=== PATIENT | male | born 1955 | race Native Hawaiian/Other Pacific Islander ===

== ENCOUNTER 2022-02-03 20:24 | Emergency (ER) | payer OTHER, MEDICAID, SELFPAY ==
[2022-02-03] VITALS (9 sets, daily range): BP systolic 176–198; BP diastolic 89–98; PULSE 75–78; RESP 16–22; TEMP 36.9; O2SAT 100
--- NOTE | 2022-02-03 21:07 | DI.RAD.S_ITS ---
PROCEDURE: XR CHEST 1V INDICATIONS: weakness TECHNIQUE: One view of the chest was acquired. COMPARISON: None. FINDINGS: Surgical changes and devices: Right IJ dialysis catheter in place. Lungs and pleura: Low lung volumes. Mildly thick interstitial markings and hazy alveolar opacities in the bilateral infrahilar regions. Possible trace bilateral effusions. No pneumothorax. Mediastinum: Mild cardiomegaly, partially obscured by low lung volumes. Normal aortic contour. No significant central venous congestion. Bones and chest wall: No suspicious bony lesions. Overlying soft tissues appear unremarkable. IMPRESSION: 1. Interstitial thickening and minor infrahilar alveolar opacities, most likely due to volume overload or CHF. 2. Mild cardiomegaly, likely accentuated by low lung volumes. 3. Possible trace bilateral effusions. Dictated by: Martha Valera M.D. on 02/03/2022 at 22:36 Approved by: Martha Valera M.D. on 02/03/2022 at 22:37
--- NOTE | 2022-02-03 21:17 | ED_ITS ---
HPI - Weakness General Chief complaint: Weakness Stated complaint: not feeling comfortable, on dialysis Time Seen by Provider: 02/03/22 21:07 Source: patient Mode of arrival: Wheelchair History of Present Illness HPI Narrative: Patient is a 66-year-old male with history is of hypertension, diabetes on hemodialysis, hospitalization September through December in [place] with multiple issues including bacteremia, MSSA, hyponatremia, anemia presenting today with ongoing weakness. His family moved him here after he was released is so they could help. He went to dialysis today but he has been feeling weak since yesterday. He no fevers or chills he seems to have pain all over no specific complaints. Family has noted significant decline. No real focal deficits. There is a language barrier daughter is at bedside and is the primary history rate. Related Data Allergies Allergy/AdvReac Type Severity Reaction Status Date / Time No Known Drug Allergies Allergy Verified 02/03/22 20:41 Review of Systems Review of Systems ROS Unobtainable: All systems reviewed & are unremarkable except as noted in HPI and below Patient History Social History Smoking Status: Never smoker Smoking Status: Never smoker Substance Use Type: does not use Exam Initial Vital Signs Initial Vital Signs: Vital Signs Temperature 98.4 F 02/03/22 20:37 Pulse Rate 78 02/03/22 20:37 Respiratory Rate 20 02/03/22 20:37 Blood Pressure 185/91 H 02/03/22 20:37 Pulse Oximetry 100 02/03/22 20:37 GENERAL: Alert week 66-year-old male appears older than stated age in no acute distress. HEENT: Head atraumatic,EOMI, pupils reactive, face symmetric, moist mucous membranes CARDIOVASCULAR: Regular rate and rhythm without murmurs, rubs or gallops. RESPIRATORY: Breath sounds equal bilaterally, no wheezes rales or rhonchi. ABDOMEN: Soft, nontender. Normoactive bowel sounds all 4 quadrants. No guarding or rebound. EXTREMITIES: Normal range of motion, no clubbing or edema. Neurovascularly intact NEUROLOGICAL: Alert and oriented diffusely weak in all extremities unable to mov e right leg which is baseline according to family. He has some tremors noted well SKIN: Warm, dry, no laceration, no petechiae, no rashes or lesions. Course Orders Ordered: ED Orders 02/03/22 21:07 XR chest 1V Stat EKG-12 Lead Stat 02/03/22 21:35 Complete Blood Count AUTO DIFF Stat Comprehensive Metabolic Panel Stat Lactate (Lactic Acid) Stat Lipase Stat Procalcitonin Stat Troponin & CK Cardiac Panel Stat 02/03/22 21:53 Blood Culture Stat 02/03/22 23:59 Trop I [Troponin I] Stat Discontinued Medications POTASSIUM CHLORIDE IN WATER (Potassium Cl 10 Meq/100 Ml Rosemary) 10 meq in 100 mls @ 100 mls/hr IV Q1H TAMARA Stop: 02/04/22 02:29 Last Infusion: 02/04/22 03:07 Dose: 0 mls/hr Documented by: Admin: 02/04/22 02:05 Dose: 100 mls/hr Documented by: Infusion: 02/04/22 01:58 Dose: 100 mls/hr Documented by: Admin: 02/04/22 00:58 Dose: 100 mls/hr Documented by: Infusion: 02/04/22 00:53 Dose: 100 mls/hr Documented by: Admin: 02/03/22 23:53 Dose: 100 mls/hr Documented by: Infusion: 02/03/22 23:28 Dose: 100 mls/hr Documented by: Admin: 02/03/22 22:28 Dose: 100 mls/hr Documented by: ORTEGA Potassium Chloride (Potassium Chloride 20 Meq Tab) 20 meq PO NOW ONE Stop: 02/04/22 02:59 Last Admin: 02/04/22 03:03 Dose: 20 meq Documented by: ORTEGA Vital Signs Vital signs: Vital Signs - 8 hr 02/03/22 20:37 02/03/22 21:04 02/03/22 21:05 Temperature 98.4 F Pulse Rate 78 75 75 Respiratory Rate 20 22 17 Blood Pressure 185/91 H 190/92 H Pulse Oximetry 100 100 100 02/03/22 21:30 02/03/22 21:56 02/03/22 22:00 Temperature Pulse Rate 77 75 75 Respiratory Rate 20 18 16 Blood Pressure 184/94 H 184/93 H Pulse Oximetry 100 100 100 02/03/22 22:30 02/03/22 23:00 02/03/22 23:30 Temperature Pulse Rate 75 75 75 Respiratory Rate 16 18 17 Blood Pressure 198/98 H 182/92 H 176/89 H Pulse Oximetry 100 100 100 02/04/22 00:00 02/04/22 00:30 02/04/22 01:00 Temperature Pulse Rate 74 74 74 Respiratory Rate 17 18 15 Blood Pressure 181/85 H 184/88 H 192/97 H Pulse Oximetry 99 100 100 02/04/22 01:30 02/04/22 02:00 02/04/22 02:30 Temperature Pulse Rate 75 78 80 Respiratory Rate 14 17 13 Blood Pressure 184/93 H 192/92 H 193/99 H Pulse Oximetry 100 98 94 02/04/22 03:00 Temperature Pulse Rate 81 Respiratory Rate 15 Blood Pressure 192/96 H Pulse Oximetry 98 MDM - Weakness Lab Data Result diagrams: 02/03/22 21:35 02/03/22 21:35 Labs: Lab Results 02/03/22 02/03/22 02/03/22 Range/Units 21:35 21:35 21:35 WBC 4.1 L (4.5-11.0) X10^3/uL RBC 3.28 L (4.5-5.9) X10^6/uL Hgb 9.8 L (13.5-17.5) g/dL Hct 28.5 L (41-53) % MCV 86.8 (80-100) fL MCH 30.0 (26-34) PG MCHC 34.5 (30-36) % RDW 15.2 H (11.6-14.8) % Plt Count 172 (150-400) X10^3/uL Neut % (Auto) 63.3 (50-75) % Lymph % (Auto) 22.0 L (25-40) % [place] % (Auto) 12.3 (3-14) % Eos % (Auto) 1.6 L (2-4) % Baso % (Auto) 0.8 (0-2) % Neut # (Auto) 2600 (5004-0993) /uL Lymph # (Auto) 900 L (2713-0566) /uL [place] # (Auto) 500 (0-900) /uL Eos # (Auto) 100 (0-450) /uL Baso # (Auto) 0 (0-100) /uL Sodium 134 L (137-145) mmol/L Potassium 2.6 L* (3.4-5.1) mmol/L Chloride 91 L (98-107) mmol/L Carbon Dioxide 33 H (22-32) mmol/L BUN 43 H (9-20) mg/dL Creatinine 3.45 H (0.66-1.25) mg/dL Estimated GFR 19 L (>60) mL/min BUN/Creatinine Ratio 12.5 (6-22) Glucose 195 H (80-110) mg/dL Lactate 1.4 (0.7-2.1) mmol/L Calcium 7.9 L (8.4-10.2) mg/dL Total Bilirubin 0.5 (0.2-1.3) mg/dL AST 33 (17-59) IU/L ALT 38 (<50) IU/L Alkaline Phosphatase 54 (38-126) U/L Total Creatine Kinase 160 (55-170) U/L CK-MB (CK-2) 3.21 H (<2.37) ng/mL CK-MB (CK-2) Rel Index 2.0 (1.5-5.0) % Troponin I 0.086 H (0.01-0.034) ng/mL Total Protein 8.7 H (6.3-8.2) g/dL Albumin 3.9 (3.5-5.0) g/dL Globulin 4.8 H (1.7-4.1) g/dL Albumin/Globulin Ratio 0.8 L (1.0-2.8) Lipase 514 H (23-300) U/L Procalcitonin (<0.5) ng/mL 02/03/22 02/03/22 Range/Units 21:35 23:59 WBC (4.5-11.0) X10^3/uL RBC (4.5-5.9) X10^6/uL Hgb (13.5-17.5) g/dL Hct (41-53) % MCV (80-100) fL MCH (26-34) PG MCHC (30-36) % RDW (11.6-14.8) % Plt Count (150-400) X10^3/uL Neut % (Auto) (50-75) % Lymph % (Auto) (25-40) % [place] % (Auto) (3-14) % Eos % (Auto) (2-4) % Baso % (Auto) (0-2) % Neut # (Auto) (4337-6896) /uL Lymph # (Auto) (1067-5135) /uL [place] # (Auto) (0-900) /uL Eos # (Auto) (0-450) /uL Baso # (Auto) (0-100) /uL Sodium (137-145) mmol/L Potassium (3.4-5.1) mmol/L Chloride (98-107) mmol/L Carbon Dioxide (22-32) mmol/L BUN (9-20) mg/dL Creatinine (0.66-1.25) mg/dL Estimated GFR (>60) mL/min BUN/Creatinine Ratio (6-22) Glucose (80-110) mg/dL Lactate (0.7-2.1) mmol/L Calcium (8.4-10.2) mg/dL Total Bilirubin (0.2-1.3) mg/dL AST (17-59) IU/L ALT (<50) IU/L Alkaline Phosphatase (38-126) U/L Total Creatine Kinase (55-170) U/L CK-MB (CK-2) (<2.37) ng/mL CK-MB (CK-2) Rel Index (1.5-5.0) % Troponin I 0.083 H (0.01-0.034) ng/mL Total Protein (6.3-8.2) g/dL Albumin (3.5-5.0) g/dL Globulin (1.7-4.1) g/dL Albumin/Globulin Ratio (1.0-2.8) Lipase (23-300) U/L Procalcitonin 0.25 (<0.5) ng/mL Imaging Data Chest x-ray: Radiologist Impression: : Abrahan Bradford MR#: [id number] : 1955 Acct:[id number] Age/Sex: 66 / M Date of Service: 02/03/22 Loc: ED Accession Number: [id number] ?? Procedure: XR chest 1V Ordering Provider: Sultana East D.O. PROCEDURE:? XR CHEST 1V ? INDICATIONS:? weakness ? TECHNIQUE:? One view of the chest was acquired.? ? COMPARISON:? None. ? FINDINGS:? ? Surgical changes and devices:? Right IJ dialysis catheter in place. ? Lungs and pleura:? Low lung volumes.? Mildly thick interstitial markings and hazy alveolar opacities in the bilateral infrahilar regions.? Possible trace bi lateral effusions.? No pneumothorax. ? Mediastinum:? Mild cardiomegaly, partially obscured by low lung volumes.? Normal aortic contour.? No significant central venous congestion. ? Bones and chest wall:? No suspicious bony lesions.? Overlying soft tissues appear unremarkable.? ? IMPRESSION:? ? 1. Interstitial thickening and minor infrahilar alveolar opacities, most likely due to volume overload or CHF. ? 2. Mild cardiomegaly, likely accentuated by low lung volumes. ? 3. Possible trace bilateral effusions.? ? ? Dictated by: Martha Valera M.D. on 02/03/2022 at 22:36 ? ? Approved by: Martha Valera M.D. on 02/03/2022 at 22:37 ? ECG Data Interpretation: Normal sinus rhythm rate 70 [place] interval [address] changes low voltage MDM Narrative Medical decision making narrative: The patient is noted to have some tremors. He is generally weak he has multiple chronic diseases. He is found to be hypokalemic with a rest this blood work is overall reassuring. I do not know what his baseline creatinine is. He is not significantly anemic. Have no other cause for in his increasing weakness. His potassium is replaced via IV and PO. At this time there is no reason for him to be admitted to hospital. Discharge Plan Departure Patient Disposition: Home Clinical Impression: Acute hypokalemia Instructions: DI for Hypokalemia Activity Restrictions/Additional Instructions: *You have been diagnosed with low potassium *What to do: At this time it is unclear why her potassium is still low. Please follow-up with your quality control engineering technician and primary care provider. Home healthcare may also be beneficial to you. Please talk with her PCP about this. Please have potassium rechecked later this week *Continue to take medications as directed *Follow up with your primary care provider in 2-3 days or call [phone] *Return to ER if you should have increasing weakness confusion tremors or any new, worsening or concerning symptoms Referrals: López Perez, DO [Primary Care Provider] -
[2022-02-03 21:46] LABS: Add Manual Diff / Slide Review NO; Basophils Absolute Auto 0 /uL (0-100); Basophils Percent Auto 0.8 % (0-2); Eosinophils Absolute Auto 100 /uL (0-450); Eosinophils Percent Auto 1.6 % (2-4); Hematocrit 28.5 % (41-53); Hemoglobin 9.8 g/dL (13.5-17.5); Lymphocytes Absolute Auto 900 /uL (1100-4500); Mean Corpuscular HGB Conc 34.5 % (30-36); Mean Corpuscular Volume 86.8 fL (80-100); Monocytes Absolute Auto 500 /uL (0-900); Monocytes Percent Auto 12.3 % (3-14); Neutrophils Absolute Auto 2600 /uL (1500-7000); Neutrophils Percent Auto 63.3 % (50-75); Platelet Count 172 X10^3/uL (150-400); Red Blood Cell Count 3.28 X10^6/uL (4.5-5.9); Red Cell Distribution Width 15.2 % (11.6-14.8); White Blood Cell Count 4.1 X10^3/uL (4.5-11.0)
[2022-02-03 21:55] LABS: Lactate (Lactic Acid) 1.4 mmol/L (0.7-2.1)
[2022-02-03 21:56] LABS: Alanine Aminotransferase 38 IU/L (<50); Albumin 3.9 g/dL (3.5-5.0); Albumin Globulin Ratio 0.8 (1.0-2.8); Alkaline Phosphatase 54 U/L (38-126); Aspartate Aminotransferase 33 IU/L (17-59); BUN Creatinine Ratio 12.5 (6-22); Bilirubin Total 0.5 mg/dL (0.2-1.3); Blood Urea Nitrogen 43 mg/dL (9-20); Calcium 7.9 mg/dL (8.4-10.2); Carbon Dioxide 33 mmol/L (22-32); Chloride 91 mmol/L (98-107); Creatine Kinase 160 U/L (55-170); Estimated Glomerular Filt Rate 19 mL/min (>60); Globulin 4.8 g/dL (1.7-4.1); Glucose 195 mg/dL (80-110); HEMOLYSIS < 15 (0-50); Lipase 514 U/L (23-300); Sodium 134 mmol/L (137-145); Total Protein 8.7 g/dL (6.3-8.2)
[2022-02-03 22:01] LABS: Potassium 2.6 mmol/L (3.4-5.1)
[2022-02-03 22:08] LABS: Troponin I 0.086 ng/mL (0.01-0.034)
[2022-02-03 22:12] LABS: Creatine Kinase MB 3.21 ng/mL (<2.37)
[2022-02-03] MEDS: POTASSIUM CHLORIDE IN WATER 10 MEQ/100 ML PIGGYBACK 100 MEQ IV ×2 (22:28→23:53)
[2022-02-03 22:40] LABS: Procalcitonin 0.25 ng/mL (<0.5)
[2022-02-04] VITALS (7 sets, daily range): BP systolic 181–193; BP diastolic 85–99; PULSE 74–81; RESP 13–18; O2SAT 94–100
[2022-02-04 00:36] LABS: Troponin I 0.083 ng/mL (0.01-0.034)
[2022-02-04] MEDS: POTASSIUM CHLORIDE IN WATER 10 MEQ/100 ML PIGGYBACK 100 MEQ IV ×2 (00:58→02:05)
[2022-02-04] MEDS: POTASSIUM CHLORIDE 20 MEQ TAB PO (03:03)
== END 2022-02-04 03:35 | disposition home or self-care (01) ==
PROVIDERS: Emergency Provider Emergency Medicine; PCP Family Medicine
DX: R53.1 Weakness (principal); E87.6 Hypokalemia; I10 Essential (primary) hypertension; Z99.2 Dependence on renal dialysis
CPT/HCPCS: 36415; 71045; 80053; 82550; 82553; 83605; 83690; 84145; 84484; 85025; 87040; 93005; 96365; 96366; 99284

== ENCOUNTER 2022-03-14 04:18 | Emergency (ER) | payer OTHER, MEDICAID, SELFPAY ==
[2022-03-14] VITALS (9 sets, daily range): BP systolic 196–205; BP diastolic 90–111; PULSE 78–84; RESP 14–18; TEMP 36.9; O2SAT 76–100; BMI 24.5
--- NOTE | 2022-03-14 04:30 | DI.RAD.S_ITS ---
PROCEDURE: XR KNEE RT 3V INDICATIONS: fall with knee pain, swelling TECHNIQUE: 3 views of the knee were acquired. COMPARISON: None. FINDINGS: Bones: No fracture or dislocation. Joint spacing is maintained. Tricompartment osteophytosis. No suspicious bony lesions. Soft tissues: Small joint effusion. Diffuse vascular calcifications. Mild soft tissue swelling of the anterior knee. Small enthesophyte at the quadriceps insertion. IMPRESSION: No acute osseous abnormality. Soft tissue swelling of the anterior knee. Small joint effusion. No significant discrepancy of the preliminary report. Dictated by: Thiago Amaral D.O. on 03/14/2022 at 6:53 Approved by: Thiago Amaral D.O. on 03/14/2022 at 6:56
--- NOTE | 2022-03-14 04:31 | DI.RAD.S_ITS ---
PROCEDURE: XR CHEST 1V INDICATIONS: fatigue, SOB TECHNIQUE: One view of the chest was acquired. COMPARISON: [facility], CR, XR CHEST 1V, 02/03/2022, 21:34. FINDINGS: Surgical changes and devices: Stable right internal jugular dialysis catheter noted with the tip overlying the expected location of the superior cavoatrial junction, unchanged. Lungs and pleura: Slightly increased interstitial prominence worse at the left greater than right lung bases. Subtle nodular opacities at the left lung base. No pleural effusions or pneumothorax. Mediastinum: Mediastinal contours appear normal. Heart size is normal. Vascular calcifications within the aortic arch. Bones and chest wall: No suspicious bony lesions. Overlying soft tissues appear unremarkable. IMPRESSION: Slightly nodular opacities set the left greater than right lung base suggesting multifocal infection. Recommend follow up radiographs to assure resolution. Agree with preliminary report. Dictated by: Thiago Amaral D.O. on 03/14/2022 at 6:51 Approved by: Thiago Amaral D.O. on 03/14/2022 at 6:53
--- NOTE | 2022-03-14 04:47 | ED_ITS ---
HPI - Recheck/Abnormal Lab/Rx General Chief Complaint: Recheck/Abnormal Lab/Rx Stated Complaint: shaking/diabetic Time Seen by Provider: 03/14/22 04:19 Source: patient and family Mode of arrival: Wheelchair History of Present Illness HPI narrative: 66-year-old male nonsmoker with history is of hypertension, diabetes on hemodialysis (managed in [place]) with hospitalization September through December in [place] with multiple issues including bacteremia, MSSA, hyponatremia, anemia with recent visit for hypokalemia presents with family and the chief complaint of shaking and weakness over the past day or two. He states he went to his regular dialysis appointment on Tuesday and it went as scheduled. He denies any fever or chills. He is not dizzy or lightheaded. He denies any chest pain but is slightly short of breath. He has no nausea, vomiting or diarrhea. He does still make urine. He was recently seen here under similar circumstances and was found to have low potassium. He states about 1 month ago he was a bit more weak than normal and tripped and fell on his right knee and has continued pain and swelling with a poorly healing scab. He has right knee pain that is worse with ambulation and improves with rest. Related Data Home Medications Medication Instructions Recorded Confirmed docusate sodium 100 mg capsule 100 mg PO PRN PRN 03/15/22 03/15/22 gabapentin 100 mg capsule See Rx Instructions .ROUTE .COMPLEX 03/15/22 03/15/22 metoprolol succinate 50 mg 50 mg PO DAILY 03/15/22 03/15/22 tablet,extended release 24 hr oxycodone 5 mg tablet 2.5 mg PRN PRN 03/15/22 03/15/22 Previous Rx's Medication Instructions Recorded levofloxacin 750 mg tablet 750 mg PO DAILY #7 tab 03/14/22 Allergies Allergy/AdvReac Type Severity Reaction Status Date / Time No Known Drug Allergies Allergy Verified 02/03/22 20:41 Review of Systems Review of Systems Narrative: GENERAL: See HPI HEENT: Denies sinus pain, ear pain, sore throat, difficulty swallowing, dizziness. RESPIRATORY: See HPI CARDIOVASCULAR: Denies chest pain, palpitations, orthopnea, edema, GASTROINTESTINAL: Denies nausea, vomiting, abdominal pain, diarrhea, constipation, melena. : Denies dysuria, frequency, incontinence, hematuria, urinary retention. MUSCULOSKELETAL: See HPI SKIN: Denies rash, skin lesions, or other NEUROLOGIC: Denies weakness, headache, numbness, change in speech, confusion, seizures, incoordination. PSYCHIATRIC: No concerning psychosocial issues. 12 point review of systems is negative except for those stated above Patient History Social History Smoking Status: Never smoker Smoking Status: Never smoker Substance Use Type: does not use Exam Narrative Exam Narrative: GENERAL: [66 year old patient appears stated age. Well-developed patient, in mild distress. No evidence of increased work of breathing HEAD: Atraumatic. Normocephalic. EYES: Pupils equal round and reactive. Extraocular motions intact. No scleral icterus. No injection or drainage. ENT: Nose without bleeding, purulent drainage. Throat without erythema, tonsillar hypertrophy or exudate. Airway patent. NECK: Trachea midline. Non tender CARDIOVASCULAR: Regular rate and rhythm without murmurs, gallops, or rubs. RESPIRATORY: Decreased breath sounds bilaterally with prolonged expiratory phase, no use of accessory muscles GASTROINTESTINAL: Abdomen soft, non-tender, nondistended. EXTREMITIES: No obvious bony point tenderness, moderate right knee effusion with minimal surrounding erythema, no obvious ligamentous instability, large scab overlying patella without drainage, fluctuance or induration BACK: Nontender without deformity or crepitance. No flank tenderness. NEURO: AOx3. SKIN: No rash or erythema of visible areas Initial Vital Signs Initial Vital Signs: Vital Signs Pulse Rate 79 03/14/22 04:30 Pulse Oximetry 100 03/14/22 04:30 Course Orders Ordered: Discontinued Medications Bupivacaine HCl (Bupivacaine 0.5% (Pf) Vial) 5 ml SUBCUT NOW ONE Stop: 03/14/22 06:16 Last Admin: 03/14/22 06:20 Dose: 5 ml Documented by: SAUL Vital Signs Vital signs: Vital Signs - 8 hr 03/14/22 04:30 03/14/22 04:31 03/14/22 05:00 Temperature 98.4 F Pulse Rate 79 84 78 Respiratory Rate 18 Blood Pressure 199/90 H 205/97 H Pulse Oximetry 100 100 100 03/14/22 05:30 03/14/22 06:00 03/14/22 06:01 Temperature Pulse Rate 82 80 83 Respiratory Rate Blood Pressure 204/90 H Pulse Oximetry 99 76 L 78 L 03/14/22 06:30 03/14/22 06:31 Temperature Pulse Rate 78 83 Respiratory Rate Blood Pressure 196/111 H Pulse Oximetry 94 97 MDM - Recheck/Abnormal Lab/Rx Lab Data Result diagrams: 03/14/22 04:40 03/14/22 04:40 Labs: Lab Results 03/14/22 03/14/22 03/14/22 Range/Units 04:35 04:40 04:40 WBC 6.3 (4.5-11.0) X10^3/uL RBC 2.79 L (4.5-5.9) X10^6/uL Hgb 8.8 L (13.5-17.5) g/dL Hct 25.3 L (41-53) % MCV 90.6 (80-100) fL MCH 31.7 (26-34) PG MCHC 35.0 (30-36) % RDW 16.2 H (11.6-14.8) % Plt Count 193 (150-400) X10^3/uL Neut % (Auto) 58.2 (50-75) % Lymph % (Auto) 26.8 (25-40) % Bureau % (Auto) 11.5 (3-14) % Eos % (Auto) 2.9 (2-4) % Baso % (Auto) 0.6 (0-2) % Neut # (Auto) 3700 (9166-3855) /uL Lymph # (Auto) 1700 (3081-5974) /uL Bureau # (Auto) 700 (0-900) /uL Eos # (Auto) 200 (0-450) /uL Baso # (Auto) 0 (0-100) /uL Sodium (137-145) mmol/L Potassium (3.4-5.1) mmol/L Chloride (98-107) mmol/L Carbon Dioxide (22-32) mmol/L BUN (9-20) mg/dL Creatinine (0.66-1.25) mg/dL Estimated GFR (>60) mL/min BUN/Creatinine Ratio (6-22) Glucose (80-110) mg/dL Lactate (0.7-2.1) mmol/L Calcium (8.4-10.2) mg/dL Magnesium 2.0 (1.6-2.3) mg/dL Total Bilirubin (0.2-1.3) mg/dL AST (17-59) IU/L ALT (<50) IU/L Alkaline Phosphatase (38-126) U/L Total Creatine Kinase (55-170) U/L CK-MB (CK-2) (<2.37) ng/mL CK-MB (CK-2) Rel Index (1.5-5.0) % Troponin I (0.01-0.034) ng/mL NT-Pro-B Natriuret Pep (<125) pg/mL Total Protein (6.3-8.2) g/dL Albumin (3.5-5.0) g/dL Globulin (1.7-4.1) g/dL Albumin/Globulin Ratio (1.0-2.8) Procalcitonin 0.71 H (<0.5) ng/mL Urine Color Urine Appearance Urine pH (4.5-8.0) Ur Specific [place] (1.000-1.035) Urine Protein (Negative) Urine Glucose (UA) (Negative) g/dL Urine Ketones (NEGATIVE) Urine Occult Blood (Negative) Urine Nitrate (Negative) Urine Bilirubin (NEGATIVE) Urine Urobilinogen (0.2) E.U./dL Ur Leukocyte Esterase (NEGATIVE) Urine RBC (0-5/HPF) Urine WBC (0-5/HPF) Ur Squamous Epith Cells (0-5/HPF) Ur Transition Epith Cell (0-5/HPF) Urine Bacteria (None) Ur Culture Indicated? Fluid Color Fluid Appearance Fluid RBC /uL Fld Tot Nucleated Cell /uL Fluid Polynuclear WBCs % Fluid Mononuclear WBCs % Fluid Eosinophils % Fluid Other Cells % Body Fluid Clot SARS-CoV-2 (PCR) Negative (Negative) 03/14/22 03/14/22 03/14/22 Range/Units 04:40 04:40 07:03 WBC (4.5-11.0) X10^3/uL RBC (4.5-5.9) X10^6/uL Hgb (13.5-17.5) g/dL Hct (41-53) % MCV (80-100) fL MCH (26-34) PG MCHC (30-36) % RDW (11.6-14.8) % Plt Count (150-400) X10^3/uL Neut % (Auto) (50-75) % Lymph % (Auto) (25-40) % Bureau % (Auto) (3-14) % Eos % (Auto) (2-4) % Baso % (Auto) (0-2) % Neut # (Auto) (2491-2679) /uL Lymph # (Auto) (1929-7274) /uL Bureau # (Auto) (0-900) /uL Eos # (Auto) (0-450) /uL Baso # (Auto) (0-100) /uL Sodium 132 L (137-145) mmol/L Potassium 3.7 (3.4-5.1) mmol/L Chloride 89 L (98-107) mmol/L Carbon Dioxide 34 H (22-32) mmol/L BUN 51 H (9-20) mg/dL Creatinine 5.82 H (0.66-1.25) mg/dL Estimated GFR 10 L (>60) mL/min BUN/Creatinine Ratio 8.8 (6-22) Glucose 175 H (80-110) mg/dL Lactate 1.2 (0.7-2.1) mmol/L Calcium 8.3 L (8.4-10.2) mg/dL Magnesium (1.6-2.3) mg/dL Total Bilirubin 0.5 (0.2-1.3) mg/dL AST 30 (17-59) IU/L ALT 30 (<50) IU/L Alkaline Phosphatase 55 (38-126) U/L Total Creatine Kinase 110 (55-170) U/L CK-MB (CK-2) 1.19 (<2.37) ng/mL CK-MB (CK-2) Rel Index 1.1 L (1.5-5.0) % Troponin I 0.052 H (0.01-0.034) ng/mL NT-Pro-B Natriuret Pep 39722 H (<125) pg/mL Total Protein 7.6 (6.3-8.2) g/dL Albumin 3.6 (3.5-5.0) g/dL Globulin 4.0 (1.7-4.1) g/dL Albumin/Globulin Ratio 0.9 L (1.0-2.8) Procalcitonin (<0.5) ng/mL Urine Color Urine Appearance Urine pH (4.5-8.0) Ur Specific [place] (1.000-1.035) Urine Protein (Negative) Urine Glucose (UA) (Negative) g/dL Urine Ketones (NEGATIVE) Urine Occult Blood (Negative) Urine Nitrate (Negative) Urine Bilirubin (NEGATIVE) Urine Urobilinogen (0.2) E.U./dL Ur Leukocyte Esterase (NEGATIVE) Urine RBC (0-5/HPF) Urine WBC (0-5/HPF) Ur Squamous Epith Cells (0-5/HPF) Ur Transition Epith Cell (0-5/HPF) Urine Bacteria (None) Ur Culture Indicated? Fluid Color Red Fluid Appearance [place] [address] /uL Fld Tot Nucleated Cell 418 /uL Fluid Polynuclear WBCs 16 % Fluid Mononuclear WBCs 20 % Fluid Eosinophils 1 % Fluid Other Cells 63 % Body Fluid Clot No clots present SARS-CoV-2 (PCR) (Negative) 03/14/22 Range/Units 07:30 WBC (4.5-11.0) X10^3/uL RBC (4.5-5.9) X10^6/uL Hgb (13.5-17.5) g/dL Hct (41-53) % MCV (80-100) fL MCH (26-34) PG MCHC (30-36) % RDW (11.6-14.8) % Plt Count (150-400) X10^3/uL Neut % (Auto) (50-75) % Lymph % (Auto) (25-40) % Bureau % (Auto) (3-14) % Eos % (Auto) (2-4) % Baso % (Auto) (0-2) % Neut # (Auto) (1144-3044) /uL Lymph # (Auto) (3689-4333) /uL Bureau # (Auto) (0-900) /uL Eos # (Auto) (0-450) /uL Baso # (Auto) (0-100) /uL Sodium (137-145) mmol/L Potassium (3.4-5.1) mmol/L Chloride (98-107) mmol/L Carbon Dioxide (22-32) mmol/L BUN (9-20) mg/dL Creatinine (0.66-1.25) mg/dL Estimated GFR (>60) mL/min BUN/Creatinine Ratio (6-22) Glucose (80-110) mg/dL Lactate (0.7-2.1) mmol/L Calcium (8.4-10.2) mg/dL Magnesium (1.6-2.3) mg/dL Total Bilirubin (0.2-1.3) mg/dL AST (17-59) IU/L ALT (<50) IU/L Alkaline Phosphatase (38-126) U/L Total Creatine Kinase (55-170) U/L CK-MB (CK-2) (<2.37) ng/mL CK-MB (CK-2) Rel Index (1.5-5.0) % Troponin I (0.01-0.034) ng/mL NT-Pro-B Natriuret Pep (<125) pg/mL Total Protein (6.3-8.2) g/dL Albumin (3.5-5.0) g/dL Globulin (1.7-4.1) g/dL Albumin/Globulin Ratio (1.0-2.8) Procalcitonin (<0.5) ng/mL Urine Color Yellow Urine Appearance Turbid Urine pH 8.5 H (4.5-8.0) Ur Specific [place] 1.015 (1.000-1.035) Urine Protein 3+ H (Negative) Urine Glucose (UA) 1+ H (Negative) g/dL Urine Ketones Negative (NEGATIVE) Urine Occult Blood 2+ H (Negative) Urine Nitrate Negative (Negative) Urine Bilirubin Negative (NEGATIVE) Urine Urobilinogen 0.2 (0.2) E.U./dL Ur Leukocyte Esterase 3+ H (NEGATIVE) Urine RBC 1-5/hpf (0-5/HPF) Urine WBC 30-100/hpf H (0-5/HPF) Ur Squamous Epith Cells 1-5 /hpf (0-5/HPF) Ur Transition Epith Cell 5-10/hpf H (0-5/HPF) Urine Bacteria None seen (None) Ur Culture Indicated? Specimen cultured Fluid Color Fluid Appearance Fluid RBC /uL Fld Tot Nucleated Cell /uL Fluid Polynuclear WBCs % Fluid Mononuclear WBCs % Fluid Eosinophils % Fluid Other Cells % Body Fluid Clot SARS-CoV-2 (PCR) (Negative) Imaging Data Extremity x-ray #1: Radiologist's Impression: No acute bony abnormality involving the right knee Discharge Plan Departure Patient Disposition: Home Clinical Impression: Hemarthrosis of knee, right, Cellulitis, Hypertension, Pneumonia Instructions: DI for Pneumonia -- Adult, DI for Hemarthrosis Activity Restrictions/Additional Instructions: *You have been diagnosed with [mild possible pneumonia, Right knee hemarthrosis ] *What to do: *Please continue to take your regular medications as directed. [ x] New medication prescriptions sent to your pharmacy: [[facility] ] [ ] New medication written as a paper prescription [ ] No new medications given *Please follow up with your primary care provider in 2-3 days, call for an appointment. Let them know you were seen in the Emergency Department and that we ask that you be seen in follow up. We will electronically transmit a record of today's note if your PCP is in our system *If you do not have a primary care provider please contact the [facility] Resource line at [phone]. They will ask some questions about your medical history and help get you set up with a doctor in the community. * as we discussed, any antibiotic as the potential to alter the Coumadin levels and is very important to be sure to get this lab checked frequently while on antibiotics. Any evidence of bleeding would warrant a return visit *Return to Emergency Department if you should have any new, worsening or concerning symptoms, such as [fever greater than 101 F, shaking chills, worsening pain, persistent vomiting or other bothersome symptoms] Prescriptions: New levofloxacin 750 mg tablet 750 mg PO DAILY Qty: 7 0RF No Action metoprolol succinate 50 mg tablet extended release 24 hr 50 mg PO DAILY 0RF Label Comments: TAKE 1 TABLET BY MOUTH ONCE DAILY docusate sodium 100 mg capsule 100 mg PO PRN PRN (Reason: Pain, Moderate) 0RF Label Comments: TAKE 1 CAPSULE BY MOUTH TWICE DAILY NEEDED FOR CONSTIPATION gabapentin 100 mg capsule See Rx Instructions .ROUTE .COMPLEX 0RF Label Comments: TAKE 1 CAPSULE BY MOUTH THREE TIMES WEEKLY AFTER DIALYSIS. Rx Instructions: 100 mg 1 cap three times weekly after dialysis oxycodone 5 mg tablet 2.5 mg PRN PRN (Reason: Pain (Scale Score 4-6)) 0RF Label Comments: TAKE 1/2 TO 1 (ONE-HALF TO ONE) TABLET BY MOUTH EVERY 8 HOURS NEEDED FOR PAIN - MAX DAILY DOSE 15 MG Referrals: López Perez, [Primary Care Provider] - Visit Report Forms: Patient Portal/API
[2022-03-14 04:55] LABS: Add Manual Diff / Slide Review NO; Basophils Absolute Auto 0 /uL (0-100); Basophils Percent Auto 0.6 % (0-2); Eosinophils Absolute Auto 200 /uL (0-450); Eosinophils Percent Auto 2.9 % (2-4); Hematocrit 25.3 % (41-53); Hemoglobin 8.8 g/dL (13.5-17.5); Lymphocytes Absolute Auto 1700 /uL (1100-4500); Lymphocytes Percent Auto 26.8 % (25-40); Mean Corpuscular Hemoglobin 31.7 PG (26-34); Mean Corpuscular Volume 90.6 fL (80-100); Monocytes Absolute Auto 700 /uL (0-900); Monocytes Percent Auto 11.5 % (3-14); Neutrophils Absolute Auto 3700 /uL (1500-7000); Neutrophils Percent Auto 58.2 % (50-75); Platelet Count 193 X10^3/uL (150-400); Red Blood Cell Count 2.79 X10^6/uL (4.5-5.9); Red Cell Distribution Width 16.2 % (11.6-14.8); White Blood Cell Count 6.3 X10^3/uL (4.5-11.0)
[2022-03-14 04:59] LABS: COVID19 -Nasal RAPID Negative (Negative)
[2022-03-14 05:02] LABS: Lactate (Lactic Acid) 1.2 mmol/L (0.7-2.1)
[2022-03-14 05:03] LABS: Alanine Aminotransferase 30 IU/L (<50); Albumin 3.6 g/dL (3.5-5.0); Albumin Globulin Ratio 0.9 (1.0-2.8); Alkaline Phosphatase 55 U/L (38-126); Aspartate Aminotransferase 30 IU/L (17-59); BUN Creatinine Ratio 8.8 (6-22); Bilirubin Total 0.5 mg/dL (0.2-1.3); Blood Urea Nitrogen 51 mg/dL (9-20); Calcium 8.3 mg/dL (8.4-10.2); Carbon Dioxide 34 mmol/L (22-32); Chloride 89 mmol/L (98-107); Creatine Kinase 110 U/L (55-170); Estimated Glomerular Filt Rate 10 mL/min (>60); Glucose 175 mg/dL (80-110); HEMOLYSIS < 15 (0-50); Potassium 3.7 mmol/L (3.4-5.1); Sodium 132 mmol/L (137-145); Total Protein 7.6 g/dL (6.3-8.2)
[2022-03-14 05:15] LABS: NT-proBNP (BNP-Adult 18+) 19400 pg/mL (<125); Troponin I 0.052 ng/mL (0.01-0.034)
[2022-03-14 05:19] LABS: CKMB % Relative Index 1.1 % (1.5-5.0); Creatine Kinase MB 1.19 ng/mL (<2.37)
[2022-03-14 05:28] LABS: Procalcitonin 0.71 ng/mL (<0.5)
[2022-03-14] MEDS: BUPIVACAINE 0.5% (PF) VIAL 5 ML SUBCUT (06:20)
[2022-03-14 07:44] LABS: Body Fluid Red Blood Cells 27324 /uL; Body Fluid Tot Nucleated Cells 418 /uL
[2022-03-14 07:46] LABS: Body Fluid Appearance CLOUDY; Body Fluid Clotted? NO CLOTS PRESENT; Body Fluid Color RED
[2022-03-14 08:08] LABS: Appearance Urine UA TURBID; Bilirubin Urine UA NEGATIVE (NEGATIVE); Color Urine UA YELLOW; Glucose Urine UA 1+ g/dL (Negative); Ketones Urine UA NEGATIVE (NEGATIVE); Leukocyte Esterase Urine UA 3+ (NEGATIVE); Nitrite Urine UA NEGATIVE (Negative); Occult Blood Urine UA 2+ (Negative); Protein Urine UA 3+ (Negative); Specific Gravity Urine UA 1.015 (1.000-1.035); Urobilinogen Urine UA 0.2 E.U./dL (0.2); pH Urine UA 8.5 (4.5-8.0)
[2022-03-14 08:56] LABS: RBC Urine 1-5/HPF (0-5/HPF); Squamous Epithelial Cell Urine 1-5 /HPF (0-5/HPF)
[2022-03-14 08:57] LABS: WBC Urine 30-100/HPF (0-5/HPF)
[2022-03-14 08:58] LABS: Bacteria Urine None Seen; Culture Indicated Urine Specimen Cultured; Transitional Epi Cells Urine 5-10/HPF (0-5/HPF)
[2022-03-14 09:19] LABS: Eosinophils Body Fluid 1 %; Mononuclear WBC Body Fluid 20 %; Polynuclear WBC Body Fluid 16 %
[2022-03-14 09:20] LABS: Other Cells Body Fluid 63 %
== END 2022-03-14 08:35 | disposition home or self-care (01) ==
PROVIDERS: Emergency Medicine; Emergency Provider Emergency Medicine; PCP Family Medicine
DX: M25.061 Hemarthrosis, right knee (principal); I10 Essential (primary) hypertension; J18.9 Pneumonia, unspecified organism; Z20.822 Contact with and (suspected) exposure to COVID-19; L03.90 Cellulitis, unspecified
CPT/HCPCS: 36415; 71045; 73562; 80053; 81001; 82550; 82553; 83605; 83735; 83880; 84145; 84484; 85025; 87040; 87070; 87075; 87086; 87205; 87635; 89051; 93005; 93010; 99284; C9803

== ENCOUNTER 2022-03-15 02:13 | Emergency (ER) | payer OTHER, MEDICAID, SELFPAY ==
--- NOTE | 2022-03-15 02:36 | DI.RAD.S_ITS ---
PROCEDURE: XR CHEST 1V INDICATIONS: septic TECHNIQUE: One view of the chest was acquired. COMPARISON: [facility], CR, XR CHEST 1V, 03/14/2022, 4:45. FINDINGS: Surgical changes and devices: Dual lumen tunneled dialysis catheter is stable. Lungs and pleura: Subtle opacities in the lung bases, left greater than right. No pleural effusions or pneumothorax. Mediastinum: Mediastinal contours appear normal. Heart size is normal. Bones and chest wall: No suspicious bony lesions. Overlying soft tissues appear unremarkable. IMPRESSION: Subtle bibasilar increased opacification which could represent atelectasis, aspiration or pneumonia. Dictated by: Melissa Harley MD, PhD on 03/15/2022 at 7:36 Approved by: Melissa Harley MD, PhD on 03/15/2022 at 7:37
[2022-03-15 02:37] VITALS: BP 219/106; PULSE 83; RESP 20; TEMP 37.1; O2SAT 95
[2022-03-15 03:12] VITALS: PULSE 80; O2SAT 100
[2022-03-15 03:23] LABS: Add Manual Diff / Slide Review NO; Basophils Absolute Auto 0 /uL (0-100); Basophils Percent Auto 0.2 % (0-2); Eosinophils Absolute Auto 100 /uL (0-450); Eosinophils Percent Auto 1.3 % (2-4); Lymphocytes Absolute Auto 1300 /uL (1100-4500); Lymphocytes Percent Auto 19.9 % (25-40); Mean Corpuscular HGB Conc 34.6 % (30-36); Mean Corpuscular Hemoglobin 31.3 PG (26-34); Mean Corpuscular Volume 90.3 fL (80-100); Monocytes Absolute Auto 500 /uL (0-900); Monocytes Percent Auto 7.1 % (3-14); Neutrophils Absolute Auto 4600 /uL (1500-7000); Neutrophils Percent Auto 71.5 % (50-75); Platelet Count 230 X10^3/uL (150-400); Red Blood Cell Count 3.21 X10^6/uL (4.5-5.9); Red Cell Distribution Width 16.1 % (11.6-14.8); White Blood Cell Count 6.5 X10^3/uL (4.5-11.0)
[2022-03-15 03:30] VITALS: PULSE 80; O2SAT 100
[2022-03-15 03:53] LABS: Alanine Aminotransferase 31 IU/L (<50); Albumin 3.9 g/dL (3.5-5.0); Albumin Globulin Ratio 0.9 (1.0-2.8); Alkaline Phosphatase 66 U/L (38-126); Aspartate Aminotransferase 33 IU/L (17-59); BUN Creatinine Ratio 7.8 (6-22); Bilirubin Total 0.6 mg/dL (0.2-1.3); Blood Urea Nitrogen 60 mg/dL (9-20); Calcium 8.9 mg/dL (8.4-10.2); Carbon Dioxide 32 mmol/L (22-32); Chloride 88 mmol/L (98-107); Creatine Kinase 122 U/L (55-170); Estimated Glomerular Filt Rate 7 mL/min (>60); Globulin 4.3 g/dL (1.7-4.1); Glucose 160 mg/dL (80-110); HEMOLYSIS < 15 (0-50); Potassium 4.5 mmol/L (3.4-5.1); Sodium 131 mmol/L (137-145); Total Protein 8.2 g/dL (6.3-8.2)
[2022-03-15 04:06] LABS: NT-proBNP (BNP-Adult 18+) 24500 pg/mL (<125)
[2022-03-15 04:08] LABS: CKMB % Relative Index 1.4 % (1.5-5.0); Creatine Kinase MB 1.75 ng/mL (<2.37)
[2022-03-15 04:10] VITALS: PULSE 82; O2SAT 99
[2022-03-15 04:15] VITALS: BP 226/107
[2022-03-15 04:22] LABS: Procalcitonin 0.55 ng/mL (<0.5)
--- NOTE | 2022-03-15 04:50 | ED_ITS ---
HPI - Nausea/Vomiting/Diarrhea General Chief complaint: Nausea/Vomiting/Diarrhea Stated complaint: throwing up, head pain Time Seen by Provider: 03/15/22 02:14 Source: family Mode of arrival: Wheelchair History of Present Illness HPI Narrative: 66-year-old male nonsmoker with history is of hypertension, diabetes on hemodialysis (M/W/F managed in [place]) with hospitalization September through December in [place] with multiple issues including bacteremia, MSSA, hyponatremia, anemia with recent visit for hypokalemia presents with family and the chief complaint of two episodes of vomiting today. He is not dizzy nor weak or lightheaded, he denies any headache or blurred vision. He denies any chest pain or shortness of breath. He denies abdominal pain. He has had no fever or chills. He was seen and evaluated yesterday complaining of occasional twitching which had happened previously with electrolyte abnormalities, he had extensive workup which suggested the possibility of pneumonia and was given antibiotics and encouraged to follow up closely. He states that he has been taking his medications as directed Related Data Home Medications Medication Instructions Recorded Confirmed docusate sodium 100 mg capsule 100 mg PO PRN PRN 03/15/22 03/15/22 gabapentin 100 mg capsule See Rx Instructions .ROUTE .COMPLEX 03/15/22 03/15/22 metoprolol succinate 50 mg 50 mg PO DAILY 03/15/22 03/15/22 tablet,extended release 24 hr oxycodone 5 mg tablet 2.5 mg PRN PRN 03/15/22 03/15/22 Previous Rx's Medication Instructions Recorded levofloxacin 750 mg tablet 750 mg PO DAILY #7 tab 03/14/22 Allergies Allergy/AdvReac Type Severity Reaction Status Date / Time No Known Drug Allergies Allergy Verified 02/03/22 20:41 Review of Systems Review of Systems Narrative: GENERAL: Denies chills, fatigue, malaise, fever, sweats. HEENT: Denies sinus pain, ear pain, sore throat, difficulty swallowing, dizziness. RESPIRATORY: Denies dyspnea, cough, wheezing, hemoptysis, sputum. CARDIOVASCULAR: Denies chest pain, palpitations, orthopnea, edema, GASTROINTESTINAL: See HPI : Denies dysuria, frequency, incontinence, hematuria, urinary retention. MUSCULOSKELETAL: denies weakness, joint pain, or bony pain SKIN: Denies rash, skin lesions, or other NEUROLOGIC: Denies weakness, headache, numbness, change in speech, confusion, seizures, incoordination. PSYCHIATRIC: No concerning psychosocial issues. 12 point review of systems is negative except for those stated above Patient History Social History Smoking Status: Never smoker Smoking Status: Never smoker Substance Use Type: does not use Exam Narrative Exam Narrative: GENERAL: [66] year old patient appears stated age. Well-developed patient, in mild distress. HEAD: Atraumatic. Normocephalic. EYES: Pupils equal round and reactive. Extraocular motions intact. No scleral icterus. No injection or drainage. ENT: Nose without bleeding, purulent drainage. Throat without erythema, tonsillar hypertrophy or exudate. Airway patent. NECK: Trachea midline. Non tender CARDIOVASCULAR: Regular rate and rhythm without murmurs, gallops, or rubs. RESPIRATORY: Clear to auscultation. Breath sounds equal bilaterally. No wheezes, rales, or rhonchi. GASTROINTESTINAL: Abdomen soft, non-tender, nondistended. EXTREMITIES: Right knee with very minimal swelling, significantly improved over yesterday, healing scab overlying the patella, no active drainage, induration or fluctuance, again significantly improved over yesterday BACK: Nontender without deformity or crepitance. No flank tenderness. NEURO: AOx3. SKIN: No rash or erythema of visible areas Initial Vital Signs Initial Vital Signs: Vital Signs Temperature 98.7 F 03/15/22 02:37 Pulse Rate 83 03/15/22 02:37 Respiratory Rate 20 03/15/22 02:37 Blood Pressure 219/106 H 03/15/22 02:37 Pulse Oximetry 95 03/15/22 02:37 Course Orders Ordered: ED Orders 03/15/22 02:36 XR chest 1V Stat Urinalysis and Microscopic Stat EKG-12 Lead Stat 03/15/22 03:05 Complete Blood Count AUTO DIFF Stat Lactate (Lactic Acid) Stat 03/15/22 03:26 Blood Culture Stat Comprehensive Metabolic Panel Stat NT-proBNP (BNP-Adult 18+) Stat Procalcitonin Stat Troponin & CK Cardiac Panel Stat Discontinued Medications Metoprolol Tartrate (Metoprolol Ir 25 Mg Tablet) 50 mg PO NOW ONE Stop: 03/15/22 05:32 Last Admin: 03/15/22 05:44 Dose: 50 mg Documented by: BALA Ondansetron HCl (Ondansetron 4 Mg Odt Prepack) 1 bottle MISC SEEINSTR ONE Stop: 03/15/22 06:39 Reevaluation(s) Reevaluation #1: Patient had essentially no response to labetalol Vital Signs Vital signs: Vital Signs - 8 hr 03/15/22 02:37 03/15/22 03:12 03/15/22 03:30 Temperature 98.7 F Pulse Rate 83 80 80 Respiratory Rate 20 Blood Pressure 219/106 H Pulse Oximetry 95 100 100 03/15/22 04:10 03/15/22 04:15 Temperature Pulse Rate 82 Respiratory Rate Blood Pressure 226/107 H Pulse Oximetry 99 MDM - Nausea/Vomiting/Diarrhea Lab Data Result diagrams: 03/15/22 03:05 03/15/22 03:26 Labs: Lab Results 03/15/22 03/15/22 03/15/22 Range/Units 03:05 03:05 03:26 WBC 6.5 (4.5-11.0) X10^3/uL RBC 3.21 L (4.5-5.9) X10^6/uL Hgb 10.0 L (13.5-17.5) g/dL Hct 29.0 L (41-53) % MCV 90.3 (80-100) fL MCH 31.3 (26-34) PG MCHC 34.6 (30-36) % RDW 16.1 H (11.6-14.8) % Plt Count 230 (150-400) X10^3/uL Neut % (Auto) 71.5 (50-75) % Lymph % (Auto) 19.9 L (25-40) % [place] % (Auto) 7.1 (3-14) % Eos % (Auto) 1.3 L (2-4) % Baso % (Auto) 0.2 (0-2) % Neut # (Auto) 4600 (2242-7812) /uL Lymph # (Auto) 1300 (3610-1896) /uL [place] # (Auto) 500 (0-900) /uL Eos # (Auto) 100 (0-450) /uL Baso # (Auto) 0 (0-100) /uL Sodium 131 L (137-145) mmol/L Potassium 4.5 (3.4-5.1) mmol/L Chloride 88 L (98-107) mmol/L Carbon Dioxide 32 (22-32) mmol/L BUN 60 H (9-20) mg/dL Creatinine 7.65 H* (0.66-1.25) mg/dL Estimated GFR 7 L (>60) mL/min BUN/Creatinine Ratio 7.8 (6-22) Glucose 160 H (80-110) mg/dL Lactate 1.0 (0.7-2.1) mmol/L Calcium 8.9 (8.4-10.2) mg/dL Total Bilirubin 0.6 (0.2-1.3) mg/dL AST 33 (17-59) IU/L ALT 31 (<50) IU/L Alkaline Phosphatase 66 (38-126) U/L Total Creatine Kinase 122 (55-170) U/L CK-MB (CK-2) 1.75 D (<2.37) ng/mL CK-MB (CK-2) Rel Index 1.4 L (1.5-5.0) % Troponin I 0.060 H (0.01-0.034) ng/mL NT-Pro-B Natriuret Pep 70774 H (<125) pg/mL Total Protein 8.2 (6.3-8.2) g/dL Albumin 3.9 (3.5-5.0) g/dL Globulin 4.3 H (1.7-4.1) g/dL Albumin/Globulin Ratio 0.9 L (1.0-2.8) Procalcitonin 0.55 H (<0.5) ng/mL MDM Narrative Medical decision making narrative: Patient with reassuring history and physical exam. He shows no signs of sepsis, no respiratory distress and has not vomited in the 5 hours that he has been here. His blood pressure is down a bit after giving his home medications. He has no headache or blurred vision, no chest pain or shortness of breath. He is tolerating orals, return precautions have been discussed and questions have been answered to his apparent satisfaction Discharge Plan Departure Patient Disposition: Home Clinical Impression: Vomiting, Hypertension Instructions: DI for Vomiting -- Adult Activity Restrictions/Additional Instructions: *You have been diagnosed with [vomiting. As we discussed, history, physical exam blood work and response to therapies are all very reassuring. *What to do: *Please continue to take your regular medications as directed. [ ] New medication prescriptions sent to your pharmacy: [ ] [ ] New medication written as a paper prescription [ ] No new medications given *Please present to her regularly scheduled dialysis appointment later today * please contact your primary care provider, let them know your seen in the emergency department and would like you seen in follow-up *Return to Emergency Department if you should have any new, worsening or concerning symptoms, such as [fever greater than 101 F, shaking chills, worsening pain, persistent vomiting or other bothersome symptoms] Prescriptions: No Action metoprolol succinate 50 mg tablet extended release 24 hr 50 mg PO DAILY 0RF Label Comments: TAKE 1 TABLET BY MOUTH ONCE DAILY docusate sodium 100 mg capsule 100 mg PO PRN PRN (Reason: Pain, Moderate) 0RF Label Comments: TAKE 1 CAPSULE BY MOUTH TWICE DAILY NEEDED FOR CONSTIPATION gabapentin 100 mg capsule See Rx Instructions .ROUTE .COMPLEX 0RF Label Comments: TAKE 1 CAPSULE BY MOUTH THREE TIMES WEEKLY AFTER DIALYSIS. Rx Instructions: 100 mg 1 cap three times weekly after dialysis oxycodone 5 mg tablet 2.5 mg PRN PRN (Reason: Pain (Scale Score 4-6)) 0RF Label Comments: TAKE 1/2 TO 1 (ONE-HALF TO ONE) TABLET BY MOUTH EVERY 8 HOURS NEEDED FOR PAIN - MAX DAILY DOSE 15 MG levofloxacin 750 mg tablet 750 mg PO DAILY Qty: 7 0RF Referrals: López Perez, [Primary Care Provider] -
[2022-03-15] MEDS: METOPROLOL IR 25 MG TABLET 50 MG PO (05:44)
[2022-03-15] MEDS: ONDANSETRON 4 MG ODT PREPACK 1 BOTTLE MISC (07:18)
[2022-03-15 07:25] VITALS: BP 200/80; PULSE 87; RESP 17; O2SAT 97
== END 2022-03-15 07:26 | disposition home or self-care (01) ==
PROVIDERS: Emergency Provider Emergency Medicine; PCP Family Medicine
DX: R11.10 Vomiting, unspecified (principal); I10 Essential (primary) hypertension
CPT/HCPCS: 36415; 71045; 80053; 82550; 82553; 83605; 83880; 84145; 84484; 85025; 87040; 93005; 93010; 99284

== ENCOUNTER → 2022-05-20 14:34 | Outpatient (CLI) | payer OTHER, MEDICAID, SELFPAY ==
[2022-05-20 15:23] LABS: Add Manual Diff / Slide Review NO; Basophils Absolute Auto 0 /uL (0-100); Basophils Percent Auto 0.8 % (0-2); Eosinophils Absolute Auto 100 /uL (0-450); Eosinophils Percent Auto 2.6 % (2-4); Lymphocytes Absolute Auto 1600 /uL (1100-4500); Lymphocytes Percent Auto 29.1 % (25-40); Mean Corpuscular HGB Conc 34.3 % (30-36); Mean Corpuscular Hemoglobin 32.5 PG (26-34); Mean Corpuscular Volume 94.8 fL (80-100); Monocytes Absolute Auto 500 /uL (0-900); Monocytes Percent Auto 9.6 % (3-14); Neutrophils Absolute Auto 3100 /uL (1500-7000); Neutrophils Percent Auto 57.9 % (50-75); Platelet Count 163 X10^3/uL (150-400); Red Cell Distribution Width 14.7 % (11.6-14.8); White Blood Cell Count 5.4 X10^3/uL (4.5-11.0)
[2022-05-20 20:45] LABS: Alanine Aminotransferase 42 IU/L (<50); Albumin 4.4 g/dL (3.5-5.0); Albumin Globulin Ratio 1.1 (1.0-2.8); Alkaline Phosphatase 59 U/L (38-126); Aspartate Aminotransferase 45 IU/L (17-59); Bilirubin Total 0.6 mg/dL (0.2-1.3); Blood Urea Nitrogen 49 mg/dL (9-20); Calcium 8.8 mg/dL (8.4-10.2); Carbon Dioxide 31 mmol/L (22-32); Chloride 92 mmol/L (98-107); Globulin 3.9 g/dL (1.7-4.1); Glucose 140 mg/dL (80-110); HEMOLYSIS < 15 (0-50); Potassium 4.3 mmol/L (3.4-5.1); Sodium 136 mmol/L (137-145); Total Protein 8.3 g/dL (6.3-8.2); Uric Acid 5.2 mg/dL (3.5-8.5)
[2022-05-20 21:00] LABS: BUN Creatinine Ratio 6.6 (6-22); Estimated Glomerular Filt Rate 7 mL/min (>60)
== END ==
PROVIDERS: PCP Family Medicine; Referring Provider Family Medicine; Visit Provider Family Medicine
DX: D64.9 Anemia, unspecified (principal); I10 Essential (primary) hypertension; M10.9 Gout, unspecified; N19 Unspecified kidney failure
CPT/HCPCS: 36415; 80053; 83036; 84550; 85025

== ENCOUNTER 2022-05-24 16:20 | Emergency (ER) | payer OTHER, MEDICAID, SELFPAY ==
[2022-05-24] VITALS (7 sets, daily range): BP systolic 140–165; BP diastolic 69–79; PULSE 76–81; RESP 14–19; TEMP 36.7; O2SAT 98–100; BMI 24.5
--- NOTE | 2022-05-24 16:48 | ED.WEAKNESS ---
HPI - Weakness General Chief complaint: Weakness Stated complaint: WEAK/REFERED FROM DIALYSIS Time Seen by Provider: 05/24/22 16:24 Source: patient and family Mode of arrival: Wheelchair History of Present Illness HPI Narrative: The patient is a 67-year-old male history of diabetes hypertension on hemodialysis Tuesday manage by Nephrology in [place] presents today with twitching and weakness. He had his full dialysis this morning. He was able to walk into the car afterwards. He then started twitching at home. He has previously had these episodes a few times and found that have low potassium. He denies any pain. Be but he does have some obvious intermittent twitching. Family member states that he started having some of it last night but certainly not this bad. Related Data Home Medications Medication Instructions Recorded Confirmed docusate sodium 100 mg capsule 100 mg PO PRN PRN Pain, Moderate 03/15/22 05/20/22 gabapentin 100 mg capsule See Rx Instructions .Route .COMPLEX 03/15/22 05/20/22 metoprolol succinate 50 mg 50 mg PO DAILY 03/15/22 05/20/22 tablet,extended release 24 hr oxycodone 5 mg tablet 2.5 mg PRN PRN Pain (Scale Score 03/15/22 05/20/22 4-6) Previous Rx's Medication Instructions Recorded levofloxacin 750 mg tablet 750 mg PO DAILY #7 tabs 03/14/22 Allergies Allergy/AdvReac Type Severity Reaction Status Date / Time No Known Drug Allergies Allergy Verified 05/24/22 16:44 Review of Systems Review of Systems Narrative: GENERAL: Denies chills, fatigue, malaise, fever, sweats, travel HEENT: Denies sinus pain, ear pain, sore throat, difficulty swallowing, neck pain RESPIRATORY: Denies dyspnea, cough, wheezing, hemoptysis, sputum. CARDIOVASCULAR: Denies chest pain, palpitations, orthopnea, edema GASTROINTESTINAL: Denies nausea, vomiting, abdominal pain, diarrhea, constipation, melena. : Denies dysuria, frequency, incontinence, hematuria, urinary retention, flank pain. MUSCULOSKELETAL: Denies weakness, joint pain, or bony pain SKIN: No rash, no erythema, no pruritus NEUROLOGIC: See HPI PSYCHIATRIC: No concerning psychosocial issues. 12 point review of systems is negative except for those stated above and HPI Patient History Medical History Anemia Gout Hypertension Renal failure Type 2 diabetes mellitus Social History Smoking Status: Never smoker Smoking Status: Never smoker alcohol intake frequency: 0-2 drinks per day Substance Use Type: does not use Exam Initial Vital Signs Initial Vital Signs: Vital Signs Pulse Rate 81 05/24/22 16:28 Blood Pressure 140/69 05/24/22 16:28 Pulse Oximetry 100 05/24/22 16:28 GENERAL: Alert pleasant 67-year-old male HEENT: Head atraumatic,EOMI, pupils reactive, face symmetric, moist mucous membranes CARDIOVASCULAR: Regular rate and rhythm without murmurs, rubs or gallops. RESPIRATORY: Breath sounds equal bilaterally, no wheezes rales or rhonchi. ABDOMEN: Soft, nontender. Normoactive bowel sounds all 4 quadrants. No guarding or rebound. EXTREMITIES: Normal range of motion, no clubbing or edema. Neurovascularly intact NEUROLOGICAL: Alert and oriented x4.N right leg weakness, mild twitching SKIN: Warm, dry, no laceration, no petechiae, no rashes or lesions. Course Orders Ordered: ED Orders 05/24/22 16:35 Complete Blood Count AUTO DIFF Stat Comprehensive Metabolic Panel Stat Lipase Stat Troponin & CK Cardiac Panel Stat 05/24/22 16:39 EKG-12 Lead Routine 05/24/22 16:49 XR chest 1V Stat Discontinued Medications Acetaminophen (Acetaminophen 325 Mg Tablet) 650 mg PO NOW ONE Stop: 05/24/22 18:38 Last Admin: 05/24/22 18:40 Dose: 650 mg Documented By: DIONNE Sodium Chloride (Normal Saline 0.9%) 1,000 mls @ 150 mls/hr IV CONT TAMARA Last Infusion: 05/24/22 18:46 Dose: 0 mls/hr Documented By: Admin: 05/24/22 17:12 Dose: 150 mls/hr Documented By: AT Vital Signs Vital signs: Vital Signs - 8 hr 05/24/22 16:34 05/24/22 16:28 05/24/22 16:28 Temperature 98.1 F Pulse Rate 80 81 Respiratory Rate 14 Blood Pressure 140/69 140/69 Pulse Oximetry 98 100 Oxygen Delivery Method Room Air 05/24/22 16:30 05/24/22 17:00 05/24/22 17:00 Temperature Pulse Rate 80 80 Respiratory Rate 14 Blood Pressure 146/75 H Pulse Oximetry 99 100 Oxygen Delivery Method 05/24/22 17:30 05/24/22 17:30 05/24/22 18:00 Temperature Pulse Rate 76 Respiratory Rate 19 Blood Pressure 151/70 H 161/73 H Pulse Oximetry 99 Oxygen Delivery Method 05/24/22 18:00 05/24/22 18:30 05/24/22 18:30 Temperature Pulse Rate 77 78 Respiratory Rate 16 15 Blood Pressure 165/79 H Pulse Oximetry 99 99 Oxygen Delivery Method MDM - Weakness Lab Data Result diagrams: 05/24/22 16:35 05/24/22 16:35 Labs: Lab Results 05/24/22 05/24/22 Range/Units 16:35 16:35 WBC 5.5 (4.5-11.0) X10^3/uL RBC 3.67 L (4.5-5.9) X10^6/uL Hgb 12.0 L (13.5-17.5) g/dL Hct 34.1 L (41-53) % MCV 93.1 (80-100) fL MCH 32.7 (26-34) PG MCHC 35.2 (30-36) % RDW 14.6 (11.6-14.8) % Plt Count 166 (150-400) X10^3/uL Neut % (Auto) 72.1 (50-75) % Lymph % (Auto) 15.3 L (25-40) % [place] % (Auto) 10.9 (3-14) % Eos % (Auto) 1.4 L (2-4) % Baso % (Auto) 0.3 (0-2) % Neut # (Auto) 4000 (2773-8030) /uL Lymph # (Auto) 800 L (7397-6520) /uL [place] # (Auto) 600 (0-900) /uL Eos # (Auto) 100 (0-450) /uL Baso # (Auto) 0 (0-100) /uL Sodium 136 L (137-145) mmol/L Potassium 4.1 (3.4-5.1) mmol/L Chloride 91 L (98-107) mmol/L Carbon Dioxide 35 H (22-32) mmol/L BUN 41 H (9-20) mg/dL Creatinine 6.05 H (0.66-1.25) mg/dL Estimated GFR 9 L (>60) mL/min BUN/Creatinine Ratio 6.8 (6-22) Glucose 267 H D (80-110) mg/dL Calcium 8.4 (8.4-10.2) mg/dL Total Bilirubin 0.7 (0.2-1.3) mg/dL AST 44 (17-59) IU/L ALT 37 (<50) IU/L Alkaline Phosphatase 60 (38-126) U/L Total Creatine Kinase 127 (55-170) U/L CK-MB (CK-2) 2.12 (<2.37) ng/mL CK-MB (CK-2) Rel Index 1.7 (1.5-5.0) % Troponin I 0.062 H (0.01-0.034) ng/mL Total Protein 8.2 (6.3-8.2) g/dL Albumin 4.1 (3.5-5.0) g/dL Globulin 4.1 (1.7-4.1) g/dL Albumin/Globulin Ratio 1.0 (1.0-2.8) Lipase 285 (23-300) U/L Imaging Data Chest x-ray: Radiologist Impression: XRay Report Signed Patient: Abrahan Bradford MR#: [id number] : 1955 Acct:[id number] Age/Sex: 67 / M Date of Service: 05/24/22 Loc: ED Accession Number: [id number] ?? Procedure: XR chest 1V Ordering Provider: Sultana East D.O. PROCEDURE:? XR CHEST 1V ? INDICATIONS:? chest pain ? TECHNIQUE:? One view of the chest was acquired.? ? COMPARISON:? [facility], , XR CHEST 1V, 03/15/2022, 2:42.? [facility], , XR CHEST 1V, 03/14/2022, 4:45. ? FINDINGS:? ? Surgical changes and devices:? Right-sided dual lumen port with the catheter tip projecting at the right atrium. ? Lungs and pleura:? Minimal streaky opacity at the lung bases, decreased.? No pleural effusions or pneumothorax.? ? Mediastinum:? Mediastinal contours appear unchanged.? Heart size is normal.? ? Bones and chest wall:? No suspicious bony lesions.? Overlying soft tissues appear unremarkable.? ? IMPRESSION:? Minimal streaky opacity at the lung bases.? Favor atelectasis or scarring. ? ? ? Dictated by: Art Burks M.D. on 05/24/2022 at 17:01 ? ? Approved by: Art Burks M.D. on 05/24/2022 at 17:02 ECG Data Interpretation: Normal sinus rhythm rate 78 MI interval 274 QRS 96 QTC 471 Q-wave noted in inferior leads 3 and AVF similar to previous EKG no ST elevations or depressions at this time. MDM Narrative Medical decision making narrative: Does have some jerking like movements but it seems to be with movement. While sleeping and resting he does not have a jerking movements. Electrolytes today appear stable. He is not hypotensive for hypokalemic. It appears that previously when he had these actually did not find anything abnormal and he was discharged. Discharge Plan Departure Patient Disposition: Home Clinical Impression: Essential tremor Instructions: Benign Essential Tremor Activity Restrictions/Additional Instructions: *You have been diagnosed with essential tremor *What to do: At this time it is unknown why there is tremors and jerking movement it is not seizure activity electrolytes are within normal limits. Please follow-up with your PCP. *Continue to take medications as directed *Follow up with your primary care provider in 2-3 days or call [phone] *Return to ER if you should have increasing tremors weakness confusion or any new, worsening or concerning symptoms Prescriptions: No Action metoprolol succinate 50 mg tablet extended release 24 hr 50 mg PO DAILY Label Comments: TAKE 1 TABLET BY MOUTH ONCE DAILY docusate sodium 100 mg capsule 100 mg PO PRN PRN (Reason: Pain, Moderate) Label Comments: TAKE 1 CAPSULE BY MOUTH TWICE DAILY NEEDED FOR CONSTIPATION gabapentin 100 mg capsule See Rx Instructions .ROUTE .COMPLEX Label Comments: TAKE 1 CAPSULE BY MOUTH THREE TIMES WEEKLY AFTER DIALYSIS. Rx Instructions: 100 mg 1 cap three times weekly after dialysis oxycodone 5 mg tablet 2.5 mg PRN PRN (Reason: Pain (Scale Score 4-6)) Label Comments: TAKE 1/2 TO 1 (ONE-HALF TO ONE) TABLET BY MOUTH EVERY 8 HOURS NEEDED FOR PAIN - MAX DAILY DOSE 15 MG levofloxacin 750 mg tablet 750 mg PO DAILY Qty: 7 0RF Referrals: López Perez DO [Primary Care Provider] - Visit Report Forms: Patient Portal/API
--- NOTE | 2022-05-24 16:49 | DI.RAD.S_ITS ---
PROCEDURE: XR CHEST 1V INDICATIONS: chest pain TECHNIQUE: One view of the chest was acquired. COMPARISON: [facility], CR, XR CHEST 1V, 03/15/2022, 2:42. [facility], CR, XR CHEST 1V, 03/14/2022, 4:45. FINDINGS: Surgical changes and devices: Right-sided dual lumen port with the catheter tip projecting at the right atrium. Lungs and pleura: Minimal streaky opacity at the lung bases, decreased. No pleural effusions or pneumothorax. Mediastinum: Mediastinal contours appear unchanged. Heart size is normal. Bones and chest wall: No suspicious bony lesions. Overlying soft tissues appear unremarkable. IMPRESSION: Minimal streaky opacity at the lung bases. Favor atelectasis or scarring. Dictated by: Art Burks M.D. on 05/24/2022 at 17:01 Approved by: Art Burks M.D. on 05/24/2022 at 17:02
[2022-05-24 16:59] LABS: Add Manual Diff / Slide Review NO; Basophils Absolute Auto 0 /uL (0-100); Basophils Percent Auto 0.3 % (0-2); Eosinophils Absolute Auto 100 /uL (0-450); Eosinophils Percent Auto 1.4 % (2-4); Hematocrit 34.1 % (41-53); Lymphocytes Absolute Auto 800 /uL (1100-4500); Lymphocytes Percent Auto 15.3 % (25-40); Mean Corpuscular HGB Conc 35.2 % (30-36); Mean Corpuscular Hemoglobin 32.7 PG (26-34); Mean Corpuscular Volume 93.1 fL (80-100); Monocytes Absolute Auto 600 /uL (0-900); Monocytes Percent Auto 10.9 % (3-14); Neutrophils Absolute Auto 4000 /uL (1500-7000); Neutrophils Percent Auto 72.1 % (50-75); Platelet Count 166 X10^3/uL (150-400); Red Blood Cell Count 3.67 X10^6/uL (4.5-5.9); Red Cell Distribution Width 14.6 % (11.6-14.8); White Blood Cell Count 5.5 X10^3/uL (4.5-11.0)
[2022-05-24 17:06] LABS: Alanine Aminotransferase 37 IU/L (<50); Albumin 4.1 g/dL (3.5-5.0); Alkaline Phosphatase 60 U/L (38-126); Aspartate Aminotransferase 44 IU/L (17-59); BUN Creatinine Ratio 6.8 (6-22); Bilirubin Total 0.7 mg/dL (0.2-1.3); Blood Urea Nitrogen 41 mg/dL (9-20); Calcium 8.4 mg/dL (8.4-10.2); Carbon Dioxide 35 mmol/L (22-32); Chloride 91 mmol/L (98-107); Creatine Kinase 127 U/L (55-170); Estimated Glomerular Filt Rate 9 mL/min (>60); Globulin 4.1 g/dL (1.7-4.1); Glucose 267 mg/dL (80-110); Lipase 285 U/L (23-300); Potassium 4.1 mmol/L (3.4-5.1); Sodium 136 mmol/L (137-145); Total Protein 8.2 g/dL (6.3-8.2)
[2022-05-24] MEDS: SODIUM CHLORIDE 0.9% 1,000 ML 150 ML IV (17:12)
[2022-05-24 17:18] LABS: Troponin I 0.062 ng/mL (0.01-0.034)
[2022-05-24 17:21] LABS: CKMB % Relative Index 1.7 % (1.5-5.0); Creatine Kinase MB 2.12 ng/mL (<2.37); HEMOLYSIS 15 (0-50)
[2022-05-24] MEDS: ACETAMINOPHEN 325 MG TABLET 650 MG PO (18:40)
== END 2022-05-24 18:30 | disposition home or self-care (01) ==
PROVIDERS: Emergency Provider Emergency Medicine; PCP Family Medicine
DX: G25.0 Essential tremor (principal); R07.9 Chest pain, unspecified
CPT/HCPCS: 36415; 71045; 80053; 82550; 82553; 83690; 84484; 85025; 93005; 93010; 99284

== ENCOUNTER → 2022-08-05 09:34 | Outpatient (CLI) | payer OTHER, MEDICAID, SELFPAY ==
[2022-08-05 10:37] LABS: Add Manual Diff / Slide Review NO; Basophils Absolute Auto 0 /uL (0-100); Basophils Percent Auto 0.6 % (0-2); Eosinophils Absolute Auto 100 /uL (0-450); Eosinophils Percent Auto 2.3 % (2-4); Hematocrit 31.9 % (41-53); Hemoglobin 11.3 g/dL (13.5-17.5); Lymphocytes Absolute Auto 1700 /uL (1100-4500); Lymphocytes Percent Auto 31.2 % (25-40); Mean Corpuscular HGB Conc 35.4 % (30-36); Mean Corpuscular Hemoglobin 31.8 PG (26-34); Mean Corpuscular Volume 89.9 fL (80-100); Monocytes Absolute Auto 500 /uL (0-900); Monocytes Percent Auto 9.8 % (3-14); Neutrophils Absolute Auto 3000 /uL (1500-7000); Neutrophils Percent Auto 56.1 % (50-75); Platelet Count 161 X10^3/uL (150-400); Red Blood Cell Count 3.55 X10^6/uL (4.5-5.9); White Blood Cell Count 5.4 X10^3/uL (4.5-11.0)
[2022-08-05 10:57] LABS: Alanine Aminotransferase 24 IU/L (<50); Albumin 4.4 g/dL (3.5-5.0); Alkaline Phosphatase 90 U/L (38-126); Aspartate Aminotransferase 25 IU/L (17-59); BUN Creatinine Ratio 4.4 (6-22); Bilirubin Total 0.8 mg/dL (0.2-1.3); Blood Urea Nitrogen 26 mg/dL (9-20); Calcium 8.7 mg/dL (8.4-10.2); Carbon Dioxide 30 mmol/L (22-32); Chloride 89 mmol/L (98-107); Estimated Glomerular Filt Rate 10 mL/min (>60); Globulin 4.2 g/dL (1.7-4.1); Glucose 174 mg/dL (80-110); HEMOLYSIS < 15 (0-50); Potassium 4.1 mmol/L (3.4-5.1); Sodium 132 mmol/L (137-145); Total Protein 8.6 g/dL (6.3-8.2)
[2022-08-05 10:59] LABS: Hemoglobin A1C% w Est Avg Glu 7.2 % (4.0-6.0)
== END ==
PROVIDERS: PCP Family Medicine; Referring Provider Family Medicine; Visit Provider Family Medicine
DX: E11.9 Type 2 diabetes mellitus without complications (principal); I10 Essential (primary) hypertension; L98.9 Disorder of the skin and subcutaneous tissue, unspecified; N18.9 Chronic kidney disease, unspecified; N18.6 End stage renal disease; Z99.2 Dependence on renal dialysis
CPT/HCPCS: 36415; 80053; 83036; 85025

== ENCOUNTER 2022-11-19 17:33 | Emergency (ER) | payer OTHER, MEDICAID, SELFPAY ==
[2022-11-19] VITALS (7 sets, daily range): BP systolic 185–200; BP diastolic 85–96; PULSE 80–87; RESP 15–18; TEMP 36.4; O2SAT 97–100; BMI 28.5
--- NOTE | 2022-11-19 17:42 | DI.RAD.S_ITS ---
PROCEDURE: XR CHEST 1V INDICATIONS: chest pain TECHNIQUE: One view of the chest was acquired. COMPARISON: [facility], CR, XR CHEST 1V, 05/24/2022, 16:49. FINDINGS: Surgical changes and devices: Right-sided dialysis catheter tip is in SVC. Lungs and pleura: Lungs are clear. No pleural effusions or pneumothorax. Mediastinum: Mediastinal contours appear normal. Heart size is normal. Bones and chest wall: No suspicious bony lesions. Overlying soft tissues appear unremarkable. IMPRESSION: No acute cardiopulmonary pathology. Dictated by: Anant Barnes M.D. on 11/19/2022 at 18:13 Approved by: Anant Barnes M.D. on 11/19/2022 at 18:14
[2022-11-19 18:38] LABS: Add Manual Diff / Slide Review NO; Basophils Absolute Auto 0 /uL (0-100); Basophils Percent Auto 0.5 % (0-2); Eosinophils Absolute Auto 0 /uL (0-450); Eosinophils Percent Auto 0.6 % (2-4); Hematocrit 35.3 % (41-53); Hemoglobin 12.5 g/dL (13.5-17.5); Lymphocytes Absolute Auto 700 /uL (1100-4500); Lymphocytes Percent Auto 9.8 % (25-40); Mean Corpuscular HGB Conc 35.5 % (30-36); Mean Corpuscular Hemoglobin 33.1 PG (26-34); Mean Corpuscular Volume 93.4 fL (80-100); Monocytes Absolute Auto 600 /uL (0-900); Neutrophils Absolute Auto 6100 /uL (1500-7000); Neutrophils Percent Auto 81.1 % (50-75); Platelet Count 176 X10^3/uL (150-400); Red Blood Cell Count 3.78 X10^6/uL (4.5-5.9); Red Cell Distribution Width 14.3 % (11.6-14.8); White Blood Cell Count 7.5 X10^3/uL (4.5-11.0)
[2022-11-19 19:04] LABS: Prothrombin Time 11.6 SECONDS (10.1-12.7)
[2022-11-19 19:06] LABS: PTT Partial Thromboplastin Tim 32 SECONDS (26-36)
[2022-11-19 19:20] LABS: Alanine Aminotransferase 20 IU/L (<50); Albumin 4.6 g/dL (3.5-5.0); Albumin Globulin Ratio 1.2 (1.0-2.8); Alkaline Phosphatase 80 U/L (38-126); Aspartate Aminotransferase 22 IU/L (17-59); BUN Creatinine Ratio 5.3 (6-22); Bilirubin Total 1.3 mg/dL (0.2-1.3); Blood Urea Nitrogen 30 mg/dL (9-20); Calcium 8.4 mg/dL (8.4-10.2); Carbon Dioxide 31 mmol/L (22-32); Chloride 87 mmol/L (98-107); Creatine Kinase 172 U/L (55-170); Estimated Glomerular Filt Rate 10 mL/min (>60); Glucose 157 mg/dL (80-110); HEMOLYSIS < 15 (0-50); Lipase 279 U/L (23-300); Magnesium 1.9 mg/dL (1.6-2.3); Potassium 4.1 mmol/L (3.4-5.1); Sodium 132 mmol/L (137-145); Total Protein 8.6 g/dL (6.3-8.2)
[2022-11-19 19:31] LABS: Troponin I 0.055 ng/mL (0.01-0.034)
[2022-11-19 19:35] LABS: CKMB % Relative Index 1.3 % (1.5-5.0); Creatine Kinase MB 2.19 ng/mL (<2.37)
[2022-11-19 19:38] LABS: COVID19 -Nasal RAPID Negative (Negative)
--- NOTE | 2022-11-19 20:19 | ED.SYNCOPE ---
HPI - Syncope General Chief Complaint: Syncope Stated Complaint: Syncopal Time Seen by Provider: 11/19/22 17:54 Source: patient, family and EMS Mode of arrival: EMS Limitations: language barrier History of Present Illness HPI narrative: Patient is a 67-year-old male history of chronic kidney disease on dialysis with hypertension anemia type 2 diabetes presents today with a near syncopal episode. He had dialysis today his picked him up they went to the store and he almost passed out he kind of got weak and lower to the ground in the grocery store. EMS came and found him to be hypotensive he is actually now hypertensive. Was feeling well earlier in the day this has happened to him previously. He has no fever chills no chest pain no shortness of breath. He is not on any anticoagulation. Related Data Home Medications Medication Instructions Recorded Confirmed docusate sodium 100 mg capsule 100 mg PO PRN PRN Pain, Moderate 03/15/22 08/05/22 gabapentin 100 mg capsule See Rx Instructions .Route .COMPLEX 03/15/22 08/05/22 metoprolol succinate 50 mg 50 mg PO DAILY 03/15/22 08/05/22 tablet,extended release 24 hr oxycodone 5 mg tablet 2.5 mg PRN PRN Pain (Scale Score 03/15/22 08/05/22 4-6) Previous Rx's Medication Instructions Recorded Disabled Parking Permit #1 ea 06/04/22 blood-glucose meter (Blood Glucose #1 ea 09/21/22 Monitoring kit) lancets 30 gauge and blood glucose #420 ea 09/24/22 strips combo pack Allergies Allergy/AdvReac Type Severity Reaction Status Date / Time No Known Drug Allergies Allergy Verified 11/11/22 11:29 Review of Systems Review of Systems ROS Unobtainable: All systems reviewed & are unremarkable except as noted in HPI and below Patient History Medical History Anemia Gout Hypertension Peripheral vascular disease Preventative health care Renal failure Skin lesion Type 2 diabetes mellitus Social History Smoking Status: Never smoker Smoking Status: Never smoker alcohol intake frequency: 0-2 drinks per day Substance Use Type: does not use Exam Initial Vital Signs Initial Vital Signs: Vital Signs Temperature 97.5 F L 11/19/22 17:57 Pulse Rate 81 11/19/22 17:57 Respiratory Rate 18 11/19/22 17:57 Blood Pressure 187/95 H 11/19/22 17:57 Pulse Oximetry 97 11/19/22 17:57 Oxygen Delivery Method 11/19/22 17:57 GENERAL: Alert 67-year-old male well-appearing HEENT: Head atraumatic,EOMI, pupils reactive, face symmetric, moist mucous membranes CARDIOVASCULAR: Regular rate and rhythm without murmurs, rubs or gallops. RESPIRATORY: Breath sounds equal bilaterally, no wheezes rales or rhonchi. ABDOMEN: Soft, nontender. Normoactive bowel sounds all 4 quadrants. No guarding or rebound. EXTREMITIES: Normal range of motion, no clubbing or edema. Neurovascularly intact NEUROLOGICAL: Alert and oriented x3. 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 SKIN: Warm, dry, no laceration, no petechiae, no rashes or lesions. Course Orders Ordered: ED Orders 11/19/22 19:09 COVID19 -Nasal RAPID/Pre-Proc Stat Vital Signs Vital signs: Vital Signs - 8 hr 11/19/22 19:30 11/19/22 19:30 11/19/22 20:00 Pulse Rate 80 Blood Pressure 185/85 H 190/89 H Pulse Oximetry 99 11/19/22 20:00 11/19/22 20:30 11/19/22 20:30 Pulse Rate 82 87 Blood Pressure 196/96 H Pulse Oximetry 98 100 MDM - Syncope Lab Data 11/19/22 18:00 11/19/22 18:00 Labs: Lab Results 11/19/22 11/19/22 11/19/22 Range/Units 18:00 18:00 18:00 WBC 7.5 (4.5-11.0) X10^3/uL RBC 3.78 L (4.5-5.9) X10^6/uL Hgb 12.5 L (13.5-17.5) g/dL Hct 35.3 L (41-53) % MCV 93.4 (80-100) fL MCH 33.1 (26-34) PG MCHC 35.5 (30-36) % RDW 14.3 (11.6-14.8) % Plt Count 176 (150-400) X10^3/uL Neut % (Auto) 81.1 H (50-75) % Lymph % (Auto) 9.8 L (25-40) % [place] % (Auto) 8.0 (3-14) % Eos % (Auto) 0.6 L (2-4) % Baso % (Auto) 0.5 (0-2) % Neut # (Auto) 6100 (9682-1405) /uL Lymph # (Auto) 700 L (9910-4531) /uL [place] # (Auto) 600 (0-900) /uL Eos # (Auto) 0 (0-450) /uL Baso # (Auto) 0 (0-100) /uL PT 11.6 (10.1-12.7) SECONDS INR 1.0 (0.9-1.3) APTT 32 (26-36) SECONDS Sodium 132 L (137-145) mmol/L Potassium 4.1 (3.4-5.1) mmol/L Chloride 87 L (98-107) mmol/L Carbon Dioxide 31 (22-32) mmol/L BUN 30 H (9-20) mg/dL Creatinine 5.67 H (0.66-1.25) mg/dL Estimated GFR 10 L (>60) mL/min BUN/Creatinine Ratio 5.3 L (6-22) Glucose 157 H (80-110) mg/dL Calcium 8.4 (8.4-10.2) mg/dL Magnesium 1.9 (1.6-2.3) mg/dL Total Bilirubin 1.3 (0.2-1.3) mg/dL AST 22 (17-59) IU/L ALT 20 (<50) IU/L Alkaline Phosphatase 80 (38-126) U/L Total Creatine Kinase 172 H (55-170) U/L CK-MB (CK-2) 2.19 (<2.37) ng/mL CK-MB (CK-2) Rel Index 1.3 L (1.5-5.0) % Troponin I 0.055 H (0.01-0.034) ng/mL Total Protein 8.6 H (6.3-8.2) g/dL Albumin 4.6 (3.5-5.0) g/dL Globulin 4.0 (1.7-4.1) g/dL Albumin/Globulin Ratio 1.2 (1.0-2.8) Lipase 279 (23-300) U/L SARS-CoV-2 (PCR) (Negative) 11/19/22 Range/Units 19:09 WBC (4.5-11.0) X10^3/uL RBC (4.5-5.9) X10^6/uL Hgb (13.5-17.5) g/dL Hct (41-53) % MCV (80-100) fL MCH (26-34) PG MCHC (30-36) % RDW (11.6-14.8) % Plt Count (150-400) X10^3/uL Neut % (Auto) (50-75) % Lymph % (Auto) (25-40) % [place] % (Auto) (3-14) % Eos % (Auto) (2-4) % Baso % (Auto) (0-2) % Neut # (Auto) (7412-8571) /uL Lymph # (Auto) (2823-1317) /uL [place] # (Auto) (0-900) /uL Eos # (Auto) (0-450) /uL Baso # (Auto) (0-100) /uL PT (10.1-12.7) SECONDS INR (0.9-1.3) APTT (26-36) SECONDS Sodium (137-145) mmol/L Potassium (3.4-5.1) mmol/L Chloride (98-107) mmol/L Carbon Dioxide (22-32) mmol/L BUN (9-20) mg/dL Creatinine (0.66-1.25) mg/dL Estimated GFR (>60) mL/min BUN/Creatinine Ratio (6-22) Glucose (80-110) mg/dL Calcium (8.4-10.2) mg/dL Magnesium (1.6-2.3) mg/dL Total Bilirubin (0.2-1.3) mg/dL AST (17-59) IU/L ALT (<50) IU/L Alkaline Phosphatase (38-126) U/L Total Creatine Kinase (55-170) U/L CK-MB (CK-2) (<2.37) ng/mL CK-MB (CK-2) Rel Index (1.5-5.0) % Troponin I (0.01-0.034) ng/mL Total Protein (6.3-8.2) g/dL Albumin (3.5-5.0) g/dL Globulin (1.7-4.1) g/dL Albumin/Globulin Ratio (1.0-2.8) Lipase (23-300) U/L SARS-CoV-2 (PCR) Negative (Negative) Imaging Data Chest x-ray: Radiologist's Impression: XRay Report Signed Patient: Abrahan Bradford MR#: [id number] : 1955 Acct:[id number] Age/Sex: 67 / M Date of Service: 11/19/22 Loc: ED Accession Number: [id number] ?? Procedure: XR chest 1V Ordering Provider: Lucretia Shafer D.O. PROCEDURE:? XR CHEST 1V ? INDICATIONS:? chest pain ? TECHNIQUE:? One view of the chest was acquired.? ? COMPARISON:? [facility], , XR CHEST 1V, 05/24/2022, 16:49. ? FINDINGS:? ? Surgical changes and devices:? Right-sided dialysis catheter tip is in SVC. ? Lungs and pleura:? Lungs are clear.? No pleural effusions or pneumothorax.? ? Mediastinum:? Mediastinal contours appear normal.? Heart size is normal.? ? Bones and chest wall:? No suspicious bony lesions.? Overlying soft tissues appear unremarkable.? ? IMPRESSION:? No acute cardiopulmonary pathology. ? ? Dictated by: Anant Barnes M.D. on 11/19/2022 at 18:13 ? ? ECG Data Interpretation: Normal sinus rhythm rate 81 MN interval 282 QRS [address] changes no T-wave inversions similar to previous EKGs MDM Narrative Medical decision making narrative: Patient is 67-year-old male history of chronic kidney disease on dialysis restless leg hypertension presenting today with a near syncopal episode. EMS reported that he was hypotensive when they arrived he had just finished dialysis. His blood pressure is Thony normal limits he has no focal deficits. He did not hit his head or lose consciousness at this time no need for head CT. Family and daughter are at bedside he is had his normal baseline mental status. Blood work overall appears stable troponin is indeterminate but lower than what it was previously. He is not having any chest pain. Likely secondary to chronic kidney disease. Electrolytes are stable no significant hypokalemia as he has had previously. At this time they would like to go home. He is able to ambulate with his walker in the ED. He is given sandwich he has not eaten for number of hours. At this time family feels comfortable going Discharge Plan Departure Patient Disposition: Home Clinical Impression: Vasovagal syncope Activity Restrictions/Additional Instructions: *You have been diagnosed with near syncopal episode *What to do: At this time likely passed out due to low blood pressure which has now resolved. Sorry this happened to today. Please be sure to go home and eat a good dinner *Continue to take medications as directed *Follow up with your primary care provider in 2-3 days or call [phone] *Return to ER if you should have recurrent episode of passing out chest pain weakness numbness tingling or any new, worsening or concerning symptoms Prescriptions: No Action (DME) blood-glucose meter [Blood Glucose Monitoring] Kit See Rx Instructions .Route Qty: 1 0RF Rx Instructions: As directed (DME) lancets-blood glucose strips 30 gauge combo pack See Rx Instructions .Route Qty: 420 0RF Rx Instructions: Take twice a day, once in AM and once before dinner/bed (DME) Disabled Parking Permit See Rx Instructions .Route .MEDSUPPLY Qty: 1 0RF Rx Instructions: I find this patient to be medically disabled and qualified for disabled parking as indicated and signed, on the accompanying Disabled Parking Application for Individuals metoprolol succinate 50 mg tablet extended release 24 hr 50 mg PO DAILY Label Comments: TAKE 1 TABLET BY MOUTH ONCE DAILY docusate sodium 100 mg capsule 100 mg PO PRN PRN (Reason: Pain, Moderate) Label Comments: TAKE 1 CAPSULE BY MOUTH TWICE DAILY NEEDED FOR CONSTIPATION gabapentin 100 mg capsule See Rx Instructions .ROUTE .COMPLEX Label Comments: TAKE 1 CAPSULE BY MOUTH THREE TIMES WEEKLY AFTER DIALYSIS. Rx Instructions: 100 mg 1 cap three times weekly after dialysis oxycodone 5 mg tablet 2.5 mg PRN PRN (Reason: Pain (Scale Score 4-6)) Label Comments: TAKE 1/2 TO 1 (ONE-HALF TO ONE) TABLET BY MOUTH EVERY 8 HOURS NEEDED FOR PAIN - MAX DAILY DOSE 15 MG Referrals: López Perez, DO [Primary Care Provider] - Stand Alone Forms: Patient Portal/API
== END 2022-11-19 20:48 | disposition home or self-care (01) ==
PROVIDERS: Emergency Medicine; Emergency Provider Emergency Medicine; PCP Family Medicine
DX: R55 Syncope and collapse (principal); R07.9 Chest pain, unspecified; Z20.822 Contact with and (suspected) exposure to COVID-19
CPT/HCPCS: 36415; 71045; 80053; 82550; 82553; 83690; 83735; 84484; 85025; 85610; 85730; 87635; 93005; 99283; 99284; C9803

== ENCOUNTER 2023-01-07 17:58 | Emergency (ER) | payer OTHER, MEDICAID, SELFPAY ==
[2023-01-07] VITALS (27 sets, daily range): BP systolic 145–181; BP diastolic 70–93; PULSE 87–94; RESP 14–24; TEMP 36.8; O2SAT 93–99; BMI 29.2
--- NOTE | 2023-01-07 18:08 | DI.RAD.S_ITS ---
PROCEDURE: XR HIP W PEL IF DONE LT 2V INDICATIONS: fall TECHNIQUE: AP pelvis with lateral view(s) of the left hip(s). COMPARISON: None. FINDINGS: Bones: No fractures or dislocations. Pelvic ring appears intact. No suspicious bony lesions. Soft tissues: The visualized bowel gas pattern is normal. No suspicious soft tissue calcifications. Heavy peripheral arterial calcification. Surgical clips in the left inguinal region. IMPRESSION: No visible hip or pelvic fracture. Dictated by: Martha Valera M.D. on 01/07/2023 at 18:51 Approved by: Martha Valera M.D. on 01/07/2023 at 18:53
--- NOTE | 2023-01-07 18:18 | DI.RAD.S_ITS ---
PROCEDURE: XR CHEST 1V INDICATIONS: GLF TECHNIQUE: One view of the chest was acquired. COMPARISON: [facility], CR, XR CHEST 1V, 11/19/2022, 17:59. FINDINGS: Surgical changes and devices: Right IJ dialysis catheter. Lungs and pleura: Lungs are clear. No pleural effusions or pneumothorax. Mediastinum: Mediastinal contours appear normal. Heart size is normal. Bones and chest wall: No suspicious bony lesions. Overlying soft tissues appear unremarkable. IMPRESSION: No acute cardiopulmonary disease. Dictated by: Martha Valera M.D. on 01/07/2023 at 18:53 Approved by: Martha Valera M.D. on 01/07/2023 at 18:55
--- NOTE | 2023-01-07 18:18 | DI.CT.S_ITS ---
PROCEDURE: CT CERVICAL SPINE WO CON INDICATIONS: c-spine tenderness after fall TECHNIQUE: Noncontrast 3 mm thick sections acquired from the skull base to the T4 level. Sagittal and coronal reformats were then constructed. For radiation dose reduction, the following was used: automated exposure control, adjustment of mA and/or kV according to patient size. COMPARISON: None. FINDINGS: Image quality: Excellent. Bones: The craniocervical junction is intact. Mild degenerative space loss and spurring at the atlantodental interval. No cervical vertebral body fractures or pathologic subluxation. Anterior bridging osteophytes from C4 through C7. Disc height loss at C5-6 and C6-7. Bony central canal stenosis at C5-6 and to lesser extent C6-7. Bilateral neural foraminal narrowing at these levels. Visualized superior ribs are intact. Soft tissues: Prevertebral soft tissues are normal in thickness. No paravertebral hematomas. No apical pneumothoraces. There is posteriorly layering moderate size right and small left pleural effusion. Moderate posterior disc bulge at the C3-4 level mildly flattening the cervical cord. Heavy vascular calcification at the carotid bulbs. IMPRESSION: 1. No CT evidence of acute cervical spine trauma. 2. Chronic appearing disc and endplate degeneration in the mid lower cervical spine. 3. Posterior C3-4 disc bulge of uncertain chronicity, presumably chronic. 4. Moderate right and small left posteriorly layering pleural effusions. Dictated by: Martha Valera M.D. on 01/07/2023 at 18:55 Approved by: Martha Valera M.D. on 01/07/2023 at 19:02
--- NOTE | 2023-01-07 18:23 | PC.NURSE ---
Addendum entered by Katlyn Wyman R.N. 01/07/23 21:13: C-collar removed by provider. Addendum entered by Katlyn Wyman R.N. 01/07/23 18:32: Pt also reporting pain to his neck. Rigid C-collar placed by this RN. Original Note: Pt tender to left side of pelvis. Pt sheeted by this RN and RN Denisse Gee Pt verbalizes pain improvement.
--- NOTE | 2023-01-07 18:24 | DI.CT.S_ITS ---
PROCEDURE: CT PEL WO CON INDICATIONS: fall with severe hip pain TECHNIQUE: Noncontrast 3 mm axial sections acquired through the bony pelvis, with coronal and sagittal reformatting. COMPARISON: None. FINDINGS: Image quality: Excellent. Bones: There is a questionable nondisplaced oblique fracture through the left femoral neck extending to the subcapital region and questionably into the lateral femoral head. No visible pelvic fracture. Bone alignment remains normal. No suspicious bone lesions. Degenerative endplate changes in the lumbar spine at the L three four level. Soft tissues: There is partial right psoas muscular atrophy and fatty infiltration. Incidental note made of bilaterally diminutive kidneys. Heavy systemic vascular calcification. There are no intrapelvic hematomas or visible intramuscular fluid collections. The urinary bladder is decompressed. The prostate gland is moderately enlarged. IMPRESSION: 1. Questionable nondisplaced oblique left femoral neck fracture. Confirmation with MR is recommended prior surgical intervention. 2. No visible pelvic fracture or bony dislocation. 3. Findings of chronic renal failure including diminutive kidneys and heavy vascular calcification. Dictated by: Martha Valera M.D. on 01/07/2023 at 19:02 Approved by: Martha Valera M.D. on 01/07/2023 at 19:09
--- NOTE | 2023-01-07 18:24 | DI.CT.S_ITS ---
PROCEDURE: CT HEAD/BRAIN WO CON INDICATIONS: fall with head injury TECHNIQUE: Noncontrast 4.5 mm thick angled axial sections acquired from the foramen magnum to the vertex, with coronal and sagittal reformats. For radiation dose reduction, the following was used: automated exposure control, adjustment of mA and/or kV according to patient size. COMPARISON: None. FINDINGS: Image quality: Excellent. CSF spaces: Basal cisterns are patent. No extra-axial fluid collections. The ventricles are symmetric in size and shape. Brain: No intracranial bleeds or masses. There is cerebral volume loss for age, with resultant ventricular and sulcal prominence. There are periventricular and deep white matter chronic small vessel ischemic changes. There is intracranial internal carotid artery atherosclerosis. Skull and face: Calvarium and visualized facial bones appear intact, without suspicious lesions. Heavy small-vessel calcification. Sinuses: Visualized sinuses and mastoids are clear. IMPRESSION: 1. No CT evidence of acute intracranial trauma. 2. No significant soft tissue injury or underlying fracture. Dictated by: Martha Valera M.D. on 01/07/2023 at 19:09 Approved by: Martha Valera M.D. on 01/07/2023 at 19:10
--- NOTE | 2023-01-07 19:11 | ED.LOWEXIN ---
HPI - Extremity Injury (Lower) General Chief Complaint: Extremity Injury, Lower Stated Complaint: GLF Time Seen by Provider: 01/07/23 18:06 Source: patient and EMS Mode of arrival: EMS History of Present Illness HPI Narrative: 67 nonsmoker with history of HD (MWF [facility]), HTN, presents by EMS for evaluation of a ground level fall resulting in left hip pain. He states that he tripped on a rock and fell on the left hip but also might have struck his head and has some midline neck pain. Denies any chest pain or upper extremity injury. Denies prodromal symptoms such as dizziness, weakness or lightheadedness but does state he has been short of breath. Denies abdominal pain, nausea or vomiting. Related Data Home Medications Medication Instructions Recorded Confirmed docusate sodium 100 mg capsule 100 mg PO PRN PRN Pain, Moderate 03/15/22 01/07/23 gabapentin 100 mg capsule See Rx Instructions .Route .COMPLEX 03/15/22 01/07/23 metoprolol succinate 50 mg 50 mg PO DAILY 03/15/22 01/07/23 tablet,extended release 24 hr oxycodone 5 mg tablet 2.5 mg PRN PRN Pain (Scale Score 03/15/22 01/07/23 4-6) calcium acetate(phosphat bind) 667 See Rx Instructions .Route .COMPLEX 01/07/23 01/07/23 mg capsule calcium citrate 315 mg-vitamin D3 2 tab PO DAILY 01/07/23 01/07/23 5 mcg (200 unit) tablet (Calcium Citrate + D) Allergies Allergy/AdvReac Type Severity Reaction Status Date / Time No Known Drug Allergies Allergy Verified 01/07/23 18:16 Review of Systems Review of Systems Narrative: GENERAL: Denies chills, fatigue, malaise, fever, sweats. HEENT: Denies sinus pain, ear pain, sore throat, difficulty swallowing, dizziness. RESPIRATORY: see HPI CARDIOVASCULAR: Denies chest pain, palpitations, orthopnea, edema, GASTROINTESTINAL: Denies nausea, vomiting, abdominal pain, diarrhea, constipation, melena. : Denies dysuria, frequency, incontinence, hematuria, urinary retention. MUSCULOSKELETAL: See HPI SKIN: Denies rash, skin lesions, or other NEUROLOGIC: Denies weakness, headache, numbness, change in speech, confusion, seizures, incoordination. PSYCHIATRIC: No concerning psychosocial issues. 12 point review of systems is negative except for those stated above Patient History Medical History Anemia Gout Hypertension Peripheral vascular disease Preventative health care Renal failure Skin lesion Type 2 diabetes mellitus Social History Smoking Status: Never smoker Smoking Status: Never smoker alcohol intake frequency: 0-2 drinks per day Substance Use Type: does not use Exam Narrative Exam Narrative: GENERAL: [67] year old patient appears stated age. Well-developed patient, in mild distress. HEAD: Atraumatic. Normocephalic. EYES: Pupils equal round and reactive. Extraocular motions intact. No scleral icterus. No injection or drainage. ENT: Nose without bleeding, purulent drainage. Throat without erythema, tonsillar hypertrophy or exudate. Airway patent. NECK: Trachea midline. Non tender CARDIOVASCULAR: Regular rate and rhythm without murmurs, gallops, or rubs. RESPIRATORY: Clear to auscultation. Breath sounds equal bilaterally. No wheezes, rales, or rhonchi. GASTROINTESTINAL: Abdomen soft, non-tender, nondistended. EXTREMITIES: L hip tender to palp, closed, isolated and neurovascularly intact, no obvious shortening or rotation BACK: Nontender without deformity or crepitance. No flank tenderness. NEURO: AOx3. SKIN: No rash or erythema of visible areas Initial Vital Signs Initial Vital Signs: Vital Signs Temperature 98.2 F 01/07/23 18:09 Pulse Rate 87 01/07/23 18:09 Respiratory Rate 17 01/07/23 18:09 Blood Pressure 152/92 H 01/07/23 18:09 Pulse Oximetry 97 01/07/23 18:09 Oxygen Delivery Method Room Air 01/07/23 18:09 Course Orders Ordered: ED Orders 01/07/23 18:08 XR hip w pel if done LT 2V Stat 01/07/23 18:18 CT cervical spine wo con Stat Chest [XR chest 1V] Stat 01/07/23 18:24 CT head/brain wo con Stat CT pelvis wo con Stat 01/07/23 18:53 EKG-12 Lead Routine 01/07/23 19:12 Complete Blood Count AUTO DIFF Stat Comprehensive Metabolic Panel Stat Lipase Stat Magnesium Stat NT-proBNP (BNP-Adult 18+) Stat PHOS [Phosphorous] Stat PTT Partial Thromboplastin [place] Stat Prothrombin Time INR Stat Troponin & CK Cardiac Panel Stat 01/07/23 19:32 Blood Culture Stat 01/07/23 20:00 COVID19 -Nasal RAPID Stat Discontinued Medications Acetaminophen (Acetaminophen 325 Mg Tablet) 975 mg PO NOW ONE Stop: 01/07/23 21:28 Last Admin: 01/07/23 21:36 Dose: 975 mg Documented By: SB Consultations Consultation #1: discussed with local ortho ([facility]), reviewed case, agrees with clear fracture on imaging Consultation #2: discussed with Dr. Pettit (ortho at [facility]) happy to receive, no immediate specific plan for surgery, requests admission to hospitalist for clearance Consultation #3: Dr. Salas (hospitalist [facility]) happy to accept Vital Signs Vital signs: Vital Signs - 8 hr 01/07/23 18:09 01/07/23 18:11 01/07/23 18:14 Temperature 98.2 F Pulse Rate 87 88 Respiratory Rate 17 Blood Pressure 152/92 H 165/82 H Pulse Oximetry 97 93 Oxygen Delivery Method Room Air 01/07/23 18:14 01/07/23 18:15 01/07/23 18:15 Temperature Pulse Rate 90 89 Respiratory Rate Blood Pressure 151/89 H Pulse Oximetry 93 93 Oxygen Delivery Method 01/07/23 18:37 01/07/23 19:00 01/07/23 19:30 Temperature Pulse Rate 89 89 87 Respiratory Rate 14 Blood Pressure Pulse Oximetry 96 Oxygen Delivery Method 01/07/23 19:35 01/07/23 19:35 01/07/23 19:39 Temperature Pulse Rate 89 Respiratory Rate Blood Pressure 181/91 H 174/86 H Pulse Oximetry 93 Oxygen Delivery Method 01/07/23 19:39 01/07/23 19:45 01/07/23 19:45 Temperature Pulse Rate 88 89 Respiratory Rate 17 22 Blood Pressure 167/89 H Pulse Oximetry 93 94 Oxygen Delivery Method 01/07/23 20:00 01/07/23 20:00 01/07/23 20:15 Temperature Pulse Rate 89 Respiratory Rate Blood Pressure 168/93 H 162/81 H Pulse Oximetry 96 Oxygen Delivery Method 01/07/23 20:15 01/07/23 20:30 01/07/23 20:30 Temperature Pulse Rate 91 H 94 H Respiratory Rate Blood Pressure 172/90 H Pulse Oximetry 95 93 Oxygen Delivery Method 01/07/23 20:45 01/07/23 20:45 01/07/23 21:00 Temperature Pulse Rate 91 H Respiratory Rate Blood Pressure 159/80 H 161/82 H Pulse Oximetry 93 Oxygen Delivery Method 01/07/23 21:00 01/07/23 21:16 01/07/23 21:16 Temperature Pulse Rate 90 90 Respiratory Rate Blood Pressure 145/70 H Pulse Oximetry 96 94 Oxygen Delivery Method 01/07/23 21:30 01/07/23 21:30 01/07/23 21:45 Temperature Pulse Rate 90 Respiratory Rate Blood Pressure 170/79 H 169/82 H Pulse Oximetry 97 Oxygen Delivery Method 01/07/23 21:45 01/07/23 22:00 01/07/23 22:00 Temperature Pulse Rate 90 89 Respiratory Rate 16 Blood Pressure 164/89 H Pulse Oximetry 97 98 Oxygen Delivery Method 01/07/23 22:16 01/07/23 22:16 01/07/23 22:30 Temperature Pulse Rate 89 Respiratory Rate 18 Blood Pressure 157/74 H 165/81 H Pulse Oximetry 95 Oxygen Delivery Method 01/07/23 22:30 01/07/23 22:46 01/07/23 22:46 Temperature Pulse Rate 87 88 Respiratory Rate 21 20 Blood Pressure 164/84 H Pulse Oximetry 96 97 Oxygen Delivery Method MDM - Extremity Injury (Lower) Lab Data 01/07/23 19:12 01/07/23 19:12 Labs: Lab Results 01/07/23 01/07/23 01/07/23 Range/Units 19:12 19:12 19:12 WBC 11.6 H (4.5-11.0) X10^3/uL RBC 3.42 L (4.5-5.9) X10^6/uL Hgb 11.2 L (13.5-17.5) g/dL Hct 32.5 L (41-53) % MCV 95.0 (80-100) fL MCH 32.6 (26-34) PG MCHC 34.3 (30-36) % RDW 13.7 (11.6-14.8) % Plt Count 188 (150-400) X10^3/uL Neut % (Auto) 89.1 H (50-75) % Lymph % (Auto) 4.9 L (25-40) % Stanley % (Auto) 5.1 (3-14) % Eos % (Auto) 0.1 L (2-4) % Baso % (Auto) 0.8 (0-2) % Neut # (Auto) 71444 H (2025-1689) /uL Lymph # (Auto) 600 L (6213-7349) /uL Stanley # (Auto) 600 (0-900) /uL Eos # (Auto) 0 (0-450) /uL Baso # (Auto) 100 (0-100) /uL PT 11.7 (10.1-12.7) SECONDS INR 1.0 (0.9-1.3) APTT 34 (26-36) SECONDS Sodium (137-145) mmol/L Potassium (3.4-5.1) mmol/L Chloride (98-107) mmol/L Carbon Dioxide (22-32) mmol/L BUN (9-20) mg/dL Creatinine (0.66-1.25) mg/dL Estimated GFR (>60) mL/min BUN/Creatinine Ratio (6-22) Glucose (80-110) mg/dL Calcium (8.4-10.2) mg/dL Phosphorus 2.6 (2.3-3.7) mg/dL Magnesium (1.6-2.3) mg/dL Total Bilirubin (0.2-1.3) mg/dL AST (17-59) IU/L ALT (<50) IU/L Alkaline Phosphatase (38-126) U/L Total Creatine Kinase (55-170) U/L CK-MB (CK-2) (<2.37) ng/mL CK-MB (CK-2) Rel Index (1.5-5.0) % Troponin I (0.01-0.034) ng/mL NT-Pro-B Natriuret Pep (<125) pg/mL Total Protein (6.3-8.2) g/dL Albumin (3.5-5.0) g/dL Globulin (1.7-4.1) g/dL Albumin/Globulin Ratio (1.0-2.8) Lipase (23-300) U/L SARS-CoV-2 (PCR) (Negative) 01/07/23 01/07/23 Range/Units 19:12 20:00 WBC (4.5-11.0) X10^3/uL RBC (4.5-5.9) X10^6/uL Hgb (13.5-17.5) g/dL Hct (41-53) % MCV (80-100) fL MCH (26-34) PG MCHC (30-36) % RDW (11.6-14.8) % Plt Count (150-400) X10^3/uL Neut % (Auto) (50-75) % Lymph % (Auto) (25-40) % Stanley % (Auto) (3-14) % Eos % (Auto) (2-4) % Baso % (Auto) (0-2) % Neut # (Auto) (3116-5351) /uL Lymph # (Auto) (2326-4953) /uL Stanley # (Auto) (0-900) /uL Eos # (Auto) (0-450) /uL Baso # (Auto) (0-100) /uL PT (10.1-12.7) SECONDS INR (0.9-1.3) APTT (26-36) SECONDS Sodium 134 L (137-145) mmol/L Potassium 4.3 (3.4-5.1) mmol/L Chloride 93 L (98-107) mmol/L Carbon Dioxide 33 H (22-32) mmol/L BUN 16 (9-20) mg/dL Creatinine 3.90 H (0.66-1.25) mg/dL Estimated GFR 16 L (>60) mL/min BUN/Creatinine Ratio 4.1 L (6-22) Glucose 128 H (80-110) mg/dL Calcium 8.2 L (8.4-10.2) mg/dL Phosphorus (2.3-3.7) mg/dL Magnesium 1.9 (1.6-2.3) mg/dL Total Bilirubin 1.5 H (0.2-1.3) mg/dL AST 35 (17-59) IU/L ALT 35 (<50) IU/L Alkaline Phosphatase 64 (38-126) U/L Total Creatine Kinase 110 (55-170) U/L CK-MB (CK-2) 1.43 (<2.37) ng/mL CK-MB (CK-2) Rel Index 1.3 L (1.5-5.0) % Troponin I 0.102 H (0.01-0.034) ng/mL NT-Pro-B Natriuret Pep 86170 H (<125) pg/mL Total Protein 7.4 (6.3-8.2) g/dL Albumin 3.8 (3.5-5.0) g/dL Globulin 3.6 (1.7-4.1) g/dL Albumin/Globulin Ratio 1.1 (1.0-2.8) Lipase 160 (23-300) U/L SARS-CoV-2 (PCR) Negative (Negative) Imaging Data Extremity x-ray #1: Attestation: I personally reviewed and interpreted this imaging study as follows: My Impression: left subcapital fx Radiologist's Impression: No obvious fx MDM Narrative Medical decision making narrative: [67] year old patient presents with GLF and left hip pain Multiple etiologies for patient's symptoms considered including, but not limited to: [fracture, dislocation vs. other] Prior Charts reviewed in our EMR Primary Historian: patient Labs reviewed and interpreted by myself: leukocytosis, no anemia, no significant electrolyte abnormalities Imaging reviewed: CT head and C-spine without acute findings, chest x-ray without evidence of acute cardiopulmonary disease. Left hip x-ray with subtle evidence of subcapital fracture, confirmed with CT of pelvis Consultations: Local orthopedist, [facility], hospital[facility] and [facility], see details above Patient with ground level fall resulting in left hip fracture requires hospitalization but due to our lack of access to Nephrology or dialysis patient will require transfer Critical Care Time Critical Care Time Critical Care Time: Yes Total Critical Care Time: 30 Attestation: The high probability of a clinically significant, sudden or life threatening deterioration of the [MSK/] system(s) required my full and direct attention, intervention and personal management. The aggregate critical care time was [30] minutes. This time is in addition to time spent performing reported procedures but includes the following: [x] Data Review and interpretation [x] Patient assessment and monitoring of vital signs [x] Documentation [x] Medication orders and management Discharge Plan Departure Patient Disposition: [facility] Clinical Impression: Subcapital fracture of left hip Prescriptions: No Action metoprolol succinate 50 mg tablet extended release 24 hr 50 mg PO DAILY Patient Comments: TAKE 1 TABLET BY MOUTH ONCE DAILY docusate sodium 100 mg capsule 100 mg PO PRN PRN (Reason: Pain, Moderate) Patient Comments: TAKE 1 CAPSULE BY MOUTH TWICE DAILY NEEDED FOR CONSTIPATION gabapentin 100 mg capsule See Rx Instructions .ROUTE .COMPLEX Patient Comments: TAKE 1 CAPSULE BY MOUTH THREE TIMES WEEKLY AFTER DIALYSIS. Rx Instructions: 100 mg 1 cap three times weekly after dialysis oxycodone 5 mg tablet 2.5 mg PRN PRN (Reason: Pain (Scale Score 4-6)) Patient Comments: TAKE 1/2 TO 1 (ONE-HALF TO ONE) TABLET BY MOUTH EVERY 8 HOURS NEEDED FOR PAIN - MAX DAILY DOSE 15 MG calcium citrate-vitamin D3 [Calcium Citrate + D] 315 mg-5 mcg (200 unit) Tablet 2 tab PO DAILY calcium acetate(phosphat bind) 667 mg capsule See Rx Instructions .ROUTE .COMPLEX Patient Comments: TAKE 2 CAPSULES BY MOUTH THREE TIMES DAILY WITH MEALS Rx Instructions: TAKE 2 CAPSULES BY MOUTH THREE TIMES DAILY WITH MEALS Referrals: López Perez DO [Primary Care Provider] -
[2023-01-07 19:20] LABS: Add Manual Diff / Slide Review NO; Basophils Absolute Auto 100 /uL (0-100); Basophils Percent Auto 0.8 % (0-2); Eosinophils Absolute Auto 0 /uL (0-450); Eosinophils Percent Auto 0.1 % (2-4); Hematocrit 32.5 % (41-53); Hemoglobin 11.2 g/dL (13.5-17.5); Lymphocytes Absolute Auto 600 /uL (1100-4500); Lymphocytes Percent Auto 4.9 % (25-40); Mean Corpuscular HGB Conc 34.3 % (30-36); Mean Corpuscular Hemoglobin 32.6 PG (26-34); Monocytes Absolute Auto 600 /uL (0-900); Monocytes Percent Auto 5.1 % (3-14); Neutrophils Absolute Auto 10300 /uL (1500-7000); Neutrophils Percent Auto 89.1 % (50-75); Platelet Count 188 X10^3/uL (150-400); Red Blood Cell Count 3.42 X10^6/uL (4.5-5.9); Red Cell Distribution Width 13.7 % (11.6-14.8); White Blood Cell Count 11.6 X10^3/uL (4.5-11.0)
[2023-01-07 19:27] LABS: Prothrombin Time 11.7 SECONDS (10.1-12.7)
[2023-01-07 19:30] LABS: PTT Partial Thromboplastin Tim 34 SECONDS (26-36)
[2023-01-07 19:35] LABS: Phosphorous 2.6 mg/dL (2.3-3.7)
[2023-01-07 19:36] LABS: Alanine Aminotransferase 35 IU/L (<50); Albumin 3.8 g/dL (3.5-5.0); Albumin Globulin Ratio 1.1 (1.0-2.8); Alkaline Phosphatase 64 U/L (38-126); Aspartate Aminotransferase 35 IU/L (17-59); BUN Creatinine Ratio 4.1 (6-22); Bilirubin Total 1.5 mg/dL (0.2-1.3); Blood Urea Nitrogen 16 mg/dL (9-20); Calcium 8.2 mg/dL (8.4-10.2); Carbon Dioxide 33 mmol/L (22-32); Chloride 93 mmol/L (98-107); Creatine Kinase 110 U/L (55-170); Estimated Glomerular Filt Rate 16 mL/min (>60); Globulin 3.6 g/dL (1.7-4.1); Glucose 128 mg/dL (80-110); HEMOLYSIS < 15 (0-50); Lipase 160 U/L (23-300); Magnesium 1.9 mg/dL (1.6-2.3); Potassium 4.3 mmol/L (3.4-5.1); Sodium 134 mmol/L (137-145); Total Protein 7.4 g/dL (6.3-8.2)
[2023-01-07 19:48] LABS: NT-proBNP (BNP-Adult 18+) 28200 pg/mL (<125); Troponin I 0.102 ng/mL (0.01-0.034)
[2023-01-07 19:51] LABS: CKMB % Relative Index 1.3 % (1.5-5.0); Creatine Kinase MB 1.43 ng/mL (<2.37)
[2023-01-07 20:30] LABS: COVID19 -Nasal RAPID Negative (Negative)
--- NOTE | 2023-01-07 21:04 | PC.NURSE ---
Addendum entered by Katlyn Wyman R.N. 01/07/23 21:12: Per our translating service, they are unable to find a Nigerien research manufacturing operator. Pt requests to speak to niece. Phone provided for patient. Original Note: Niece called. Reports some memory issues and kl[place] ka[place] language of Nigerien, with Romansh as his second language. This RN to request Nigerien research manufacturing operator via iPad for improved communication.
[2023-01-07] MEDS: ACETAMINOPHEN 325 MG TABLET 975 MG PO (21:36)
[2023-01-08] VITALS: BP 167/83; PULSE 86; O2SAT 96
[2023-01-08 00:15] VITALS: BP 161/77; PULSE 84; RESP 22; O2SAT 95
== END 2023-01-08 00:25 | disposition short-term general hospital (02) ==
PROVIDERS: Emergency Provider Emergency Medicine; PCP Family Medicine
DX: S72.012A Unspecified intracapsular fracture of left femur, initial encounter for closed fracture (principal); R79.89 Other specified abnormal findings of blood chemistry; S09.90XA Unspecified injury of head, initial encounter; M54.2 Cervicalgia; W01.0XXA Fall on same level from slipping, tripping and stumbling without subsequent striking against object, initial encounter; Z20.822 Contact with and (suspected) exposure to COVID-19
CPT/HCPCS: 36415; 70450; 71045; 72125; 72192; 73502; 80053; 82550; 82553; 83690; 83735; 83880; 84100; 84484; 85025; 85610; 85730; 87040; 87635; 93005; 99284; 99285; C9803

== ENCOUNTER 2023-04-24 23:56 | Emergency (ER) | payer OTHER, MEDICAID, SELFPAY ==
[2023-04-25] VITALS (23 sets, daily range): BP systolic 161–226; BP diastolic 79–113; PULSE 66–114; RESP 13–34; TEMP 36.4; O2SAT 89–98; BMI 26.4
--- NOTE | 2023-04-25 00:17 | ED.GENADULT ---
HPI - General Adult General Chief complaint: Shortness of Breath/Dyspnea Stated complaint: SOB Time Seen by Provider: 04/25/23 00:17 Source: patient and family Mode of arrival: Wheelchair History of Present Illness HPI narrative: 67-year-old dialysis patient, primary language is Marshal marian, with a history of hypertension presents after an episode of emesis and then developed shortness of breath. He denies any aspiration of the emesis. He states that he did do his usual dialysis on Tuesday, he does make a small amount of urine that has not changed. He noted the nausea starting in the middle of the day and feels that the medication that he did take available to him at home has been helpful. He is not complaining of chest pain he is slightly tachypneic. Notes that he has not taken any of his usual medications including his metoprolol today. He reports no chest pain, palpitations, abdominal pain, lower extremity edema or localizing weakness. Related Data Home Medications Medication Instructions Recorded Confirmed docusate sodium 100 mg capsule 100 mg PO PRN PRN Pain, Moderate 03/15/22 01/07/23 gabapentin 100 mg capsule See Rx Instructions .Route .COMPLEX 03/15/22 01/07/23 metoprolol succinate 50 mg 50 mg PO DAILY 03/15/22 01/07/23 tablet,extended release 24 hr oxycodone 5 mg tablet 2.5 mg PRN PRN Pain (Scale Score 03/15/22 01/07/23 4-6) calcium acetate(phosphat bind) 667 See Rx Instructions .Route .COMPLEX 01/07/23 01/07/23 mg capsule calcium citrate 315 mg-vitamin D3 2 tab PO DAILY 01/07/23 01/07/23 5 mcg (200 unit) tablet (Calcium Citrate + D) Allergies Allergy/AdvReac Type Severity Reaction Status Date / Time No Known Drug Allergies Allergy Verified 01/07/23 18:16 Review of Systems Review of Systems Narrative: Pertinent positive and negative findings as per HPI Patient History Medical History Anemia Gout Hemodialysis patient Hypertension Peripheral vascular disease [facility]ative [facility] Renal failure Skin lesion Type 2 diabetes mellitus Social History Smoking Status: Never smoker Smoking Status: Never smoker alcohol intake frequency: 0-2 drinks per day Substance Use Type: does not use Exam Initial Vital Signs Initial Vital Signs: Vital Signs Temperature 97.6 F 04/25/23 00:02 Pulse Rate 84 04/25/23 00:02 Respiratory Rate 24 04/25/23 00:02 Blood Pressure 210/101 H 04/25/23 00:02 Pulse Oximetry 96 04/25/23 00:02 Oxygen Delivery Method Room Air 04/25/23 00:02 General: Chronically ill-appearing gentleman, mild tachypnea no obvious respiratory distress HEENT: Dry, mucous membranes, normal sclera with reactive pupils, Neck: No JVD, supple Respiratory: Lungs are clear to auscultation, no wheezing no rales no rhonchi. Full and symmetrical air movement. He has a previously placed tunneled dialysis catheter in the right upper chest wall so fullness over the right side of his chest that is not new Cardiac: Regular rate and rhythm no murmurs no bruits Abdomen: Soft, nontender, good bowel tones, no flank pain Skin: Warm and dry, chronic venous stasis changes Neurologic: Globally weak but Grossly neurologically intact with no obvious asymmetries or abnormalities Extremities: No trauma, well perfused Psych: Cooperative, Course Orders Ordered: ED Orders 04/25/23 00:15 Complete Blood Count AUTO DIFF Stat Comprehensive Metabolic Panel Stat Lactate (Lactic Acid) Stat NT-proBNP (BNP-Adult 18+) Stat Prothrombin Time INR Stat Troponin I Stat 04/25/23 00:18 XR chest 1V Stat EKG-12 Lead Stat Measure peak expiratory flow ONCE RT Consult Eval and Treat NOW Discontinued Medications Albuterol (Albuterol Hfa Mdi 60 Puff/8 Gm Inhaler) 2 puff INH NOW ONE Stop: 04/25/23 00:33 Last Admin: 04/25/23 00:58 Dose: Not Given Documented By: Aspirin (Aspirin 81 Mg Chew Tab) 324 mg PO NOW ONE Stop: 04/25/23 00:30 Last Admin: 04/25/23 00:38 Dose: 324 mg Documented By: Carbidopa/Levodopa (Carbidopa-Levodopa 25/100 Tablet) 1 each PO NOW ONE Stop: 04/25/23 00:33 Last Admin: 04/25/23 00:47 Dose: Not Given Documented By: SB Metoprolol Tartrate (Metoprolol Tartrate 5 Mg/5 Ml Inj) 5 mg IV Q5M [facility] Stop: 04/25/23 00:41 Last Admin: 04/25/23 00:36 Dose: 5 mg Documented By: Nitroglycerin (Nitroglycerin Oint 1 Inch/Gm Oint...G.) 0.5 inch TOP NOW ONE Stop: 04/25/23 00:30 Last Admin: 04/25/23 00:37 Dose: 0.5 inch Documented By: Vital Signs Vital signs: Vital Signs - 8 hr 04/25/23 00:02 04/25/23 00:14 04/25/23 00:17 Temperature 97.6 F Pulse Rate 84 86 105 H Respiratory Rate 24 34 H 34 H Blood Pressure 210/101 H Pulse Oximetry 96 89 L Oxygen Delivery Method Room Air Room Air 04/25/23 00:17 04/25/23 00:37 04/25/23 00:26 Temperature Pulse Rate 72 Respiratory Rate Blood Pressure 226/113 H 205/109 H 213/105 H Pulse Oximetry Oxygen Delivery Method 04/25/23 00:26 04/25/23 00:30 04/25/23 00:30 Temperature Pulse Rate 114 H 95 H Respiratory Rate 27 H 26 H Blood Pressure 205/109 H Pulse Oximetry 95 93 Oxygen Delivery Method 04/25/23 00:44 04/25/23 00:44 04/25/23 00:45 Temperature Pulse Rate 69 69 Respiratory Rate 25 H 25 H Blood Pressure 176/89 H Pulse Oximetry 94 95 Oxygen Delivery Method 04/25/23 00:45 04/25/23 01:00 04/25/23 01:00 Temperature Pulse Rate 66 Respiratory Rate 22 Blood Pressure 176/87 H 175/90 H Pulse Oximetry 94 Oxygen Delivery Method 04/25/23 01:15 04/25/23 01:15 04/25/23 01:30 Temperature Pulse Rate 68 Respiratory Rate 24 Blood Pressure 161/90 H 176/88 H Pulse Oximetry 97 Oxygen Delivery Method 04/25/23 01:30 04/25/23 01:45 04/25/23 01:45 Temperature Pulse Rate 68 68 Respiratory Rate 28 H 24 Blood Pressure 176/96 H Pulse Oximetry 97 97 Oxygen Delivery Method 04/25/23 02:00 04/25/23 02:00 04/25/23 02:15 Temperature Pulse Rate 68 68 Respiratory Rate 20 13 Blood Pressure 173/96 H Pulse Oximetry 98 97 Oxygen Delivery Method 04/25/23 02:15 04/25/23 02:30 04/25/23 02:30 Temperature Pulse Rate 71 Respiratory Rate 17 Blood Pressure 174/91 H 179/92 H Pulse Oximetry 97 Oxygen Delivery Method 04/25/23 02:45 04/25/23 02:45 04/25/23 03:00 Temperature Pulse Rate 72 Respiratory Rate Blood Pressure 179/92 H 177/92 H Pulse Oximetry 96 Oxygen Delivery Method 04/25/23 03:00 04/25/23 03:15 04/25/23 03:15 Temperature Pulse Rate 70 71 Respiratory Rate Blood Pressure 170/92 H Pulse Oximetry 95 95 Oxygen Delivery Method Medical Decision Making Lab Data 04/25/23 00:15 04/25/23 00:15 Labs: Lab Results 04/25/23 04/25/23 04/25/23 Range/Units 00:15 00:15 00:15 WBC 5.9 (4.5-11.0) X10^3/uL RBC 3.68 L (4.5-5.9) X10^6/uL Hgb 11.7 L (13.5-17.5) g/dL Hct 32.9 L (41-53) % MCV 89.3 (80-100) fL MCH 31.8 (26-34) PG MCHC 35.6 (30-36) % RDW 14.6 (11.6-14.8) % Plt Count 141 L (150-400) X10^3/uL Neut % (Auto) 75.8 H (50-75) % Lymph % (Auto) 16.2 L (25-40) % [place] % (Auto) 6.2 (3-14) % Eos % (Auto) 1.1 L (2-4) % Baso % (Auto) 0.7 (0-2) % Neut # (Auto) 4400 (8375-2224) /uL Lymph # (Auto) 1000 L (2712-5748) /uL [place] # (Auto) 400 (0-900) /uL Eos # (Auto) 100 (0-450) /uL Baso # (Auto) 0 (0-100) /uL PT 10.9 (10.1-12.7) SECONDS INR 1.0 (0.9-1.3) Sodium 122 L (137-145) mmol/L Potassium 4.6 (3.4-5.1) mmol/L Chloride 80 L (98-107) mmol/L Carbon Dioxide 27 (22-32) mmol/L BUN 53 H (9-20) mg/dL Creatinine 8.66 H* (0.66-1.25) mg/dL Estimated GFR 6 L (>60) mL/min BUN/Creatinine Ratio 6.1 (6-22) Glucose 150 H (80-110) mg/dL Lactate (0.7-2.1) mmol/L Calcium 8.7 (8.4-10.2) mg/dL Total Bilirubin 1.3 (0.2-1.3) mg/dL AST 54 (17-59) IU/L ALT 49 (<50) IU/L Alkaline Phosphatase 70 (38-126) U/L Troponin I 0.074 H (0.01-0.034) ng/mL NT-Pro-B Natriuret Pep 97217 H (<125) pg/mL Total Protein 8.7 H (6.3-8.2) g/dL Albumin 4.6 (3.5-5.0) g/dL Globulin 4.1 (1.7-4.1) g/dL Albumin/Globulin Ratio 1.1 (1.0-2.8) 04/25/23 Range/Units 00:15 WBC (4.5-11.0) X10^3/uL RBC (4.5-5.9) X10^6/uL Hgb (13.5-17.5) g/dL Hct (41-53) % MCV (80-100) fL MCH (26-34) PG MCHC (30-36) % RDW (11.6-14.8) % Plt Count (150-400) X10^3/uL Neut % (Auto) (50-75) % Lymph % (Auto) (25-40) % [place] % (Auto) (3-14) % Eos % (Auto) (2-4) % Baso % (Auto) (0-2) % Neut # (Auto) (1847-3909) /uL Lymph # (Auto) (8945-7879) /uL [place] # (Auto) (0-900) /uL Eos # (Auto) (0-450) /uL Baso # (Auto) (0-100) /uL PT (10.1-12.7) SECONDS INR (0.9-1.3) Sodium (137-145) mmol/L Potassium (3.4-5.1) mmol/L Chloride (98-107) mmol/L Carbon Dioxide (22-32) mmol/L BUN (9-20) mg/dL Creatinine (0.66-1.25) mg/dL Estimated GFR (>60) mL/min BUN/Creatinine Ratio (6-22) Glucose (80-110) mg/dL Lactate 1.4 (0.7-2.1) mmol/L Calcium (8.4-10.2) mg/dL Total Bilirubin (0.2-1.3) mg/dL AST (17-59) IU/L ALT (<50) IU/L Alkaline Phosphatase (38-126) U/L Troponin I (0.01-0.034) ng/mL NT-Pro-B Natriuret Pep (<125) pg/mL Total Protein (6.3-8.2) g/dL Albumin (3.5-5.0) g/dL Globulin (1.7-4.1) g/dL Albumin/Globulin Ratio (1.0-2.8) MDM Narrative Medical decision making narrative: CC: Episode of emesis followed by dyspnea, acute finding uncertain prognosis Complicating co-morbidities: Hemodialysis patient Data collected from: patient, and daughter Social determinants of health that may influence the patients condition: Patient's primary language is Marshal C[place] Medical records reviewed: [facility] notes from November and July are reviewed. Differential considered: Acute coronary syndrome or equivalent, volume overload, aortic dissection, sepsis Exam documented above, pertinent findings include: Significant hypertension but remainder of exam is relatively benign. He does not have dramatic volume overload as evidenced by JVD or lower extremity edema. Minimal crackles. Lab Test results independently reviewed as above. Pertinent findings: CBC is unremarkable with chronic stable anemia Metabolic panel shows a creatinine of 8.6 (he is due for dialysis in a couple of hours), hyponatremia 122 Lactic is 1.4 Troponin is 0.074 which appears to be close to his baseline. BNP is elevated at more than 22,000 which appears to be slightly lower than his baseline. Independently reviewed EKG sinus rhythm at a rate of 65, first-degree block Left ventricular hypertrophy with left axis deviation. No acute ischemic changes Imaging studies independently reviewed: Chest x-ray shows patchy only bibasilar airspace. Small pleural effusions I suspect that this is more volume overload rather than acute infection Treatments: IV metoprolol, topical nitrate Re-evaluations: Patient is sleeping soundly, blood pressure is come down after metoprolol and with topical nitrates. Oxygen saturations are in the low 90s. There is no signs of respiratory distress. He appears quite comfortable. Discussion: 67-year-old hemodialysis patient had an episode of emesis than shortness of breath. His blood pressure was elevated on arrival. Currently is down slightly but still elevated. He is sleeping comfortably no respiratory distress no oxygen needs. Workup does not suggest acute coronary syndrome, bacterial etiology, I do not suspect pneumonia based on his clinical exam and blood work. In the absence of significant cough I am not suspicious for acute viral syndrome. He is due for dialysis at 10:00 a.m. this morning. At this point I think that will make the biggest difference in his overall blood pressure, dyspnea and volume overload and he is safe for discharge home in anticipation of dialysis in a couple of hours. All of this is discussed with the patient, his and his daughter they will go home make sure they get him to dialysis later this morning. Discharge Plan Departure Patient Disposition: Home Clinical Impression: Acute dyspnea, Hemodialysis patient Nausea & vomiting Qualifiers: Vomiting type: unspecified Qualified Code(s): R11.2 - Nausea with vomiting, unspecified Volume overload Qualifiers: Hypervolemia type: other Qualified Code(s): E87.79 - Other fluid overload Instructions: DI for Shortness of Breath Activity Restrictions/Additional Instructions: Thank you for coming in tonight There is no evidence of viral pneumonia, bacterial pneumonia, heart attack. You do have quite a bit of volume overload and I think the best treatment at this point will be to get you to your dialysis appointment scheduled at 10:00 a.m. this morning. I do not think that there is any indication for antibiotics, additional imaging studies in the emergency department or hospitalization at this time. Please do take all of your usual morning medications Please make sure that you get to your morning dialysis appointment If you find that you are getting worse or develop any new symptoms, please feel free to return to the emergency department for further evaluation. Prescriptions: No Action metoprolol succinate 50 mg tablet extended release 24 hr 50 mg PO DAILY Patient Comments: TAKE 1 TABLET BY MOUTH ONCE DAILY docusate sodium 100 mg capsule 100 mg PO PRN PRN (Reason: Pain, Moderate) Patient Comments: TAKE 1 CAPSULE BY MOUTH TWICE DAILY NEEDED FOR CONSTIPATION gabapentin 100 mg capsule See Rx Instructions .ROUTE .COMPLEX Patient Comments: TAKE 1 CAPSULE BY MOUTH THREE TIMES WEEKLY AFTER DIALYSIS. Rx Instructions: 100 mg 1 cap three times weekly after dialysis oxycodone 5 mg tablet 2.5 mg PRN PRN (Reason: Pain (Scale Score 4-6)) Patient Comments: TAKE 1/2 TO 1 (ONE-HALF TO ONE) TABLET BY MOUTH EVERY 8 HOURS NEEDED FOR PAIN - MAX DAILY DOSE 15 MG calcium citrate-vitamin D3 [Calcium Citrate + D] 315 mg-5 mcg (200 unit) Tablet 2 tab PO DAILY calcium acetate(phosphat bind) 667 mg capsule See Rx Instructions .ROUTE .COMPLEX Patient Comments: TAKE 2 CAPSULES BY MOUTH THREE TIMES DAILY WITH MEALS Rx Instructions: TAKE 2 CAPSULES BY MOUTH THREE TIMES DAILY WITH MEALS Referrals: López Perez, [Primary Care Provider] - Stand Alone Forms: Patient Portal/API
--- NOTE | 2023-04-25 00:18 | DI.RAD.S_ITS ---
PROCEDURE: XR CHEST 1V INDICATIONS: Shortness of breath TECHNIQUE: One view of the chest was acquired. COMPARISON: [facility], CR, XR CHEST 1V, 01/07/2023, 18:10. FINDINGS: Surgical changes and devices: None. Lungs and pleura: There are patchy bibasilar airspace opacities. Pulmonary vascular prominence is also demonstrated suggestive of mild edema. There are suspected small pleural effusions. No pneumothorax. Mediastinum: Mediastinal contours appear normal. Heart size is normal. Bones and chest wall: No suspicious bony lesions. Overlying soft tissues appear unremarkable. IMPRESSION: 1. Patchy bibasilar airspace opacities are nonspecific but suggestive of pneumonia. 2. Mild pulmonary edema. 3. Suspected small pleural effusions. Dictated by: Thad Casas M.D. on 04/25/2023 at 1:25 Approved by: Thad Casas M.D. on 04/25/2023 at 1:26
[2023-04-25 00:26] LABS: Add Manual Diff / Slide Review NO; Basophils Absolute Auto 0 /uL (0-100); Basophils Percent Auto 0.7 % (0-2); Eosinophils Absolute Auto 100 /uL (0-450); Eosinophils Percent Auto 1.1 % (2-4); Hematocrit 32.9 % (41-53); Hemoglobin 11.7 g/dL (13.5-17.5); Lymphocytes Absolute Auto 1000 /uL (1100-4500); Lymphocytes Percent Auto 16.2 % (25-40); Mean Corpuscular HGB Conc 35.6 % (30-36); Mean Corpuscular Hemoglobin 31.8 PG (26-34); Mean Corpuscular Volume 89.3 fL (80-100); Monocytes Absolute Auto 400 /uL (0-900); Monocytes Percent Auto 6.2 % (3-14); Neutrophils Absolute Auto 4400 /uL (1500-7000); Neutrophils Percent Auto 75.8 % (50-75); Platelet Count 141 X10^3/uL (150-400); Red Blood Cell Count 3.68 X10^6/uL (4.5-5.9); Red Cell Distribution Width 14.6 % (11.6-14.8); White Blood Cell Count 5.9 X10^3/uL (4.5-11.0)
[2023-04-25 00:28] LABS: Prothrombin Time 10.9 SECONDS (10.1-12.7)
[2023-04-25 00:33] LABS: Lactate (Lactic Acid) 1.4 mmol/L (0.7-2.1)
[2023-04-25 00:34] LABS: Alanine Aminotransferase 49 IU/L (<50); Albumin 4.6 g/dL (3.5-5.0); Albumin Globulin Ratio 1.1 (1.0-2.8); Alkaline Phosphatase 70 U/L (38-126); Aspartate Aminotransferase 54 IU/L (17-59); BUN Creatinine Ratio 6.1 (6-22); Bilirubin Total 1.3 mg/dL (0.2-1.3); Blood Urea Nitrogen 53 mg/dL (9-20); Calcium 8.7 mg/dL (8.4-10.2); Carbon Dioxide 27 mmol/L (22-32); Chloride 80 mmol/L (98-107); Estimated Glomerular Filt Rate 6 mL/min (>60); Globulin 4.1 g/dL (1.7-4.1); Glucose 150 mg/dL (80-110); HEMOLYSIS < 15 (0-50); Potassium 4.6 mmol/L (3.4-5.1); Sodium 122 mmol/L (137-145); Total Protein 8.7 g/dL (6.3-8.2)
[2023-04-25] MEDS: METOPROLOL TARTRATE 5 MG/5 ML INJ IV (00:36)
[2023-04-25] MEDS: NITROGLYCERIN OINT 1 INCH/GM OINT...G. 0.5 INCH TOP (00:37)
[2023-04-25] MEDS: ASPIRIN 81 MG CHEW TAB 324 MG PO (00:38)
[2023-04-25 00:45] LABS: NT-proBNP (BNP-Adult 18+) 22400 pg/mL (<125); Troponin I 0.074 ng/mL (0.01-0.034)
== END 2023-04-25 04:30 | disposition home or self-care (01) ==
PROVIDERS: Emergency Provider Emergency Medicine; PCP Family Medicine
DX: R06.00 Dyspnea, unspecified (principal); R11.2 Nausea with vomiting, unspecified; E87.79 Other fluid overload; R06.02 Shortness of breath; Z99.2 Dependence on renal dialysis
CPT/HCPCS: 36415; 71045; 80053; 83605; 83880; 84484; 85025; 85610; 93005; 99284; A9270

== ENCOUNTER → 2023-07-28 11:01 | Outpatient (CLI) | payer OTHER, MEDICAID, SELFPAY ==
[2023-07-28 13:11] LABS: Add Manual Diff / Slide Review NO; Basophils Absolute Auto 100 /uL (0-100); Eosinophils Absolute Auto 100 /uL (0-450); Eosinophils Percent Auto 2.6 % (2-4); Hematocrit 32.7 % (41-53); Hemoglobin 11.4 g/dL (13.5-17.5); Lymphocytes Absolute Auto 900 /uL (1100-4500); Lymphocytes Percent Auto 18.6 % (25-40); Mean Corpuscular HGB Conc 34.8 % (30-36); Mean Corpuscular Hemoglobin 32.5 PG (26-34); Mean Corpuscular Volume 93.4 fL (80-100); Monocytes Absolute Auto 500 /uL (0-900); Monocytes Percent Auto 9.6 % (3-14); Neutrophils Absolute Auto 3500 /uL (1500-7000); Neutrophils Percent Auto 68.2 % (50-75); Platelet Count 164 X10^3/uL (150-400); Red Cell Distribution Width 15.2 % (11.6-14.8); White Blood Cell Count 5.1 X10^3/uL (4.5-11.0)
[2023-07-28 13:28] LABS: Hemoglobin A1C% w Est Avg Glu 6.9 % (4.0-6.0)
[2023-07-28 13:33] LABS: HEMOLYSIS < 15 (0-50); Iron 37 ug/dL (49-181)
[2023-07-28 13:37] LABS: Alanine Aminotransferase 29 IU/L (<50); Albumin 4.3 g/dL (3.5-5.0); Albumin Globulin Ratio 1.3 (1.0-2.8); Alkaline Phosphatase 47 U/L (38-126); Aspartate Aminotransferase 23 IU/L (17-59); BUN Creatinine Ratio 4.8 (6-22); Bilirubin Total 0.7 mg/dL (0.2-1.3); Blood Urea Nitrogen 37 mg/dL (9-20); Calcium 9.5 mg/dL (8.4-10.2); Carbon Dioxide 29 mmol/L (22-32); Chloride 91 mmol/L (98-107); Estimated Glomerular Filt Rate 7 mL/min (>60); Globulin 3.4 g/dL (1.7-4.1); Glucose 157 mg/dL (80-110); HEMOLYSIS < 15 (0-50); Sodium 135 mmol/L (137-145); Total Protein 7.7 g/dL (6.3-8.2)
[2023-07-28 13:51] LABS: Percent Iron Saturation 16 % (20-50); Transferrin 169 mg/dL (206-381)
[2023-07-28 14:13] LABS: Ferritin 709 ng/mL (18-464)
[2023-07-28 17:39] LABS: Total Iron Binding Capacity 235 ug/dL (261-462)
== END ==
PROVIDERS: PCP Family Medicine; Referring Provider Family Medicine; Visit Provider Family Medicine
DX: E11.9 Type 2 diabetes mellitus without complications (principal); N19 Unspecified kidney failure; D64.9 Anemia, unspecified
CPT/HCPCS: 36415; 80053; 82728; 83036; 83540; 83550; 85025

== ENCOUNTER → 2023-09-12 11:56 | Outpatient (CLI) | payer OTHER, MEDICAID, SELFPAY ==
--- NOTE | 2023-09-12 11:58 | DI.RAD.S_ITS ---
PROCEDURE: XR TIBIA FIBULA LT 2V INDICATIONS: Open fracture of the L lower leg TECHNIQUE: 2 views of the tibia and fibula were acquired. COMPARISON: [facility], CR, XR TIBIA FIBULA LEFT, 09/07/2023, 14:06. FINDINGS: Bones: Comminuted proximal tibial fibular fracture supported by tibial intramedullary warren. There is surface softening the fracture lines. Fracture fragments appear in appropriate alignment Soft tissues: No suspicious soft tissue calcifications or masses. IMPRESSION: Healing instrumented tibial fracture. Healing fibular fracture in appropriate alignment. Approved by: Raphael Naranjo M.D. on 09/12/2023 at 18:54
== END ==
PROVIDERS: PCP Family Medicine; Referring Provider Family Medicine; Visit Provider Family Medicine
DX: S82.402E Unspecified fracture of shaft of left fibula, subsequent encounter for open fracture type I or II with routine healing (principal); S82.202E Unspecified fracture of shaft of left tibia, subsequent encounter for open fracture type I or II with routine healing; X58.XXXD Exposure to other specified factors, subsequent encounter
CPT/HCPCS: 73590

== ENCOUNTER 2023-10-13 12:28 | Emergency (ER) | payer OTHER, MEDICAID, SELFPAY ==
--- NOTE | 2023-10-13 | DI.RAD.S_ITS ---
PROCEDURE: XR TIBIA FIBULA LT 2V INDICATIONS: HARE[place] PROTRUSION TECHNIQUE: 2 views of the tibia and fibula were acquired. COMPARISON: [facility], CR, XR TIBIA FIBULA LT 2V, 09/12/2023, 11:59. FINDINGS: Bones: ORIF of the tibia has been performed. Lateral protrusion of proximal and distal tibial screws is present, as before. No change in alignment of the proximal tibial and fibular fractures. Soft tissues: No suspicious soft tissue calcifications or masses. IMPRESSION: Postsurgical sequelae as above. Dictated by: Neelam Henriquez M.D. on 10/13/2023 at 13:36 Approved by: Neelam Henriquez M.D. on 10/13/2023 at 13:36
[2023-10-13 12:56] VITALS: BP 177/82; PULSE 88; RESP 18; TEMP 37.1; O2SAT 99; BMI 29.0
--- NOTE | 2023-10-13 13:02 | DI.RAD.S_ITS ---
PROCEDURE: XR KNEE LT 3V INDICATIONS: hardware protrusion TECHNIQUE: 3 views of the knee were acquired. COMPARISON: [facility], CR, XR TIBIA FIBULA LEFT, 09/07/2023, 14:06. [facility], CR, XR FEMUR 2+ VIEWS LEFT, 09/07/2023, 14:16. [facility], CR, XR KNEE RT 3V, 03/14/2022, 4:45. [facility], CR, XR TIBIA FIBULA LT 2V, 09/12/2023, 11:59. [facility], CR, XR HIP 1 VIEW LEFT, 09/07/2023, 14:16. FINDINGS: Bones: Partially visualized ORIF the proximal tibia. The superior most fixation screw has migrated anteriorly with proximal tip at/protruding through the skin surface at the level the tibial plateau. It is best seen on lateral view. It extends approximately 2.2 cm anterior from the tibial cortex. In addition, the 3rd surgical screw from the superior aspect of the intramedullary warren appears minimally retracted medially with the screw head approximately 3 mm beyond the tibial cortex. Comminuted mildly displaced fractures the proximal tibia as well as fibula are present. Overall, there appears to be increased appearance of fracture lucencies as well as diastasis compared to prior exam. Soft tissues: No joint effusion. No suspicious soft tissue calcifications. IMPRESSION: Comminuted tibial and fibular fractures appearing to demonstrate increased displacement/diastasis compared to prior exam. Retraction of surgical screws as above. Dictated by: Marcia Eastman M.D. on 10/13/2023 at 13:52 Approved by: Marcia Eastman M.D. on 10/13/2023 at 14:01
--- NOTE | 2023-10-13 13:53 | PC.NURSE ---
patient has what appears to be a piece of hardware pushing the skin out below his knee. It's approx 1cm around and 1.5 cm out from the knee.
--- NOTE | 2023-10-13 14:00 | ED_ITS ---
HPI - Extremity Problem <MITA Ibrahim - Last Filed: 10/13/23 15:04> General Chief complaint: Extremity Problem,Nontraumatic Stated complaint: LFT LEG PAIN History of Present Illness HPI Narrative: 68-year-old male, with history diabetes and hypertension, presents to the emergency department with suspected surgical hardware backing out of his left leg. Patient had tib-fib fracture that was surgically repaired on September 01 in [facility]. Patient states that there was no trauma but started to notice that a screw was backing out below his left knee approximately 5 days ago. Patient has not contacted his orthopedic surgeon. Related Data Home Medications Medication Instructions Recorded Confirmed calcium acetate(phosphat bind) 667 See Rx Instructions .Route .COMPLEX 01/07/23 09/19/23 mg capsule calcium citrate 315 mg-vitamin D3 2 tab PO DAILY 01/07/23 09/19/23 5 mcg (200 unit) tablet (Calcium Citrate + D) amlodipine 5 mg tablet 5 mg PO DAILY 07/28/23 09/19/23 aspirin 81 mg tablet,delayed 81 mg PO DAILY 07/28/23 09/19/23 release (Adult Low Dose Aspirin) atorvastatin 40 mg tablet 40 mg PO DAILY 07/28/23 09/19/23 carvedilol 6.25 mg tablet 6.25 mg PO BID 07/28/23 09/19/23 gabapentin 100 mg capsule See Rx Instructions PO BID PRN 07/28/23 09/19/23 ferrous sulfate 325 mg (65 mg 325 mg PO Q OTHER DAY 09/12/23 09/19/23 iron) tablet Previous Rx's Medication Instructions Recorded metoprolol succinate 50 mg 50 mg PO DAILY #90 tabs 05/17/23 tablet,extended release 24 hr Wheelchair #1 ea 09/19/23 docusate sodium 100 mg tablet 100 mg PO BID PRN diarrhea #60 tabs 09/23/23 Allergies Allergy/AdvReac Type Severity Reaction Status Date / Time No Known Drug Allergies Allergy Verified 09/19/23 10:39 Review of Systems <MITA Ibrahim - Last Filed: 10/13/23 15:04> Review of Systems Narrative: Narrative: See HPI. GENERAL: Denies chills, fatigue, fever, sweats. HEENT: Denies sinus pain, ear pain, sore throat, difficulty swallowing, di zziness. RESPIRATORY: Denies dyspnea, cough, wheezing, sputum. CARDIOVASCULAR: Denies chest pain, palpitations, edema. GASTROINTESTINAL: Denies nausea, vomiting, abdominal pain, diarrhea, constipation. : Denies dysuria, frequency, incontinence, hematuria, urinary retention, flank pain. MSK: Denies weakness, joint pain. Endorses bulging section beneath left knee associated with surgical hardware. SKIN: Denies rash, skin lesions, or pruritis. NEUROLOGIC: Denies weakness, dizziness, headache, numbness, confusion. PSYCHIATRIC: No concerning psychosocial issues. Patient History <MITA Ibrahim - Last Filed: 10/13/23 15:04> Medical History Open fracture of left tibia and fibula Hemodialysis patient Preventative health care Skin lesion Peripheral vascular disease Type 2 diabetes mellitus Gout Hypertension Renal failure Anemia Social History Smoking Status: Never smoker Smoking Status: Never smoker alcohol intake frequency: 0-2 drinks per day Substance Use Type: does not use Exam <MITA Ibrahim - Last Filed: 10/13/23 15:04> Narrative Exam Narrative: Exam Narrative: GENERAL: This is a well-nourished, well-developed patient, in no acute distress. HEAD: Atraumatic. Normocephalic. EYES: Pupils equal round and reactive. No scleral icterus, injection or drainage. ENT: Nose without bleeding, purulent drainage. Airway patent. NECK: Trachea midline. No JVD or lymphadenopathy. Nontender. CARDIOVASCULAR: Regular rate and rhythm without murmurs, peripheral pulses intact, cap refill <2 sec. RESPIRATORY: Breath sounds equal and clear bilaterally. No wheezes, rales, or rhonchi. No cough. No increased respiratory effort. No accessory muscle use. GASTROINTESTINAL: Abdomen soft, non-tender, nondistended without guarding or rebound. No suprapubic pain. MSK: Moves all extremities. Normal range of motion, no clubbing or edema. Neurovascularly intact. Bulge noted inferior to left knee associated with surgical hardware. NEURO: A&O x 3. SKIN: Warm, dry, no rashes or lesions noted. Initial Vital Signs Initial Vital Signs: Vital Signs Temperature 98.7 F 10/13/23 12:56 Pulse Rate 88 10/13/23 12:56 Respiratory Rate 18 10/13/23 12:56 Blood Pressure 177/82 H 10/13/23 12:56 Pulse Oximetry 99 10/13/23 12:56 Oxygen Delivery Method Room Air 10/13/23 12:56 Reviewed <Wallace Garrison DO - Last Filed: 10/13/23 17:43> Initial Vital Signs Initial Vital Signs: Vital Signs Temperature 98.7 F 10/13/23 12:56 Pulse Rate 88 10/13/23 12:56 Respiratory Rate 18 10/13/23 12:56 Blood Pressure 177/82 H 10/13/23 12:56 Pulse Oximetry 99 10/13/23 12:56 Oxygen Delivery Method Room Air 10/13/23 12:56 Course <MITA Ibrahim - Last Filed: 10/13/23 15:04> Orders Ordered: ED Orders 10/13/23 13:02 XR knee LT 3V Stat Consultations Consultation #1: Amelia Pena PA, discussed case with Dr. Guillaume and decision was made that patient should contact his previous surgeon for removal and replacement. Vital Signs Vital signs: Vital Signs - 8 hr 10/13/23 12:56 10/13/23 15:05 Temperature 98.7 F 98 F Pulse Rate 88 85 Respiratory Rate 18 19 Blood Pressure 177/82 H 186/86 H Pulse Oximetry 99 99 Oxygen Delivery Method Room Air Room Air <Wallace Garrison DO - Last Filed: 10/13/23 17:43> Orders Ordered: ED Orders 10/13/23 13:02 XR knee LT 3V Stat Vital Signs Vital signs: Vital Signs - 8 hr 10/13/23 12:56 10/13/23 15:05 Temperature 98.7 F 98 F Pulse Rate 88 85 Respiratory Rate 18 19 Blood Pressure 177/82 H 186/86 H Pulse Oximetry 99 99 Oxygen Delivery Method Room Air Room Air MDM - Extremity (Nontraumatic) <MITA Ibrahim - Last Filed: 10/13/23 15:04> Differential Diagnosis Differential diagnosis: Likely cellulitis and other (Surgical hardware retraction) Imaging Data Extremity x-ray #1: My Impression: Surgical hardware retraction. Radiologist's Impression: [address] [address] XRay Report Signed Patient: Abrahan Bradford MR#: [id number] : 1955 Acct:[id number] Age/Sex: 68 / M Date of Service: 10/13/23 Loc: ED Accession Number: [id number] Procedure: XR knee LT 3V Ordering Provider: Wallace Garrison D.O. PROCEDURE: XR KNEE LT 3V INDICATIONS: hardware protrusion TECHNIQUE: 3 views of the knee were acquired. COMPARISON: [facility], CR, XR TIBIA FIBULA LEFT, 09/07/2023, 14:06. [facility], CR, XR FEMUR 2+ VIEWS LEFT, 09/07/2023, 14:16. [facility], CR, XR KNEE RT 3V, 03/14/2022, 4:45. [facility], CR, XR TIBIA FIBULA LT 2V, 09/12/2023, 11:59. [facility], CR, XR HIP 1 VIEW LEFT, 09/07/2023, 14:16. FINDINGS: Bones: Partially visualized ORIF the proximal tibia. The superior most fixation screw has migrated anteriorly with proximal tip at/protruding through the skin surface at the level the tibial plateau. It is best seen on lateral view. It extends approx imately 2.2 cm anterior from the tibial cortex. In addition, the 3rd surgical screw from the superior aspect of the intramedullary warren appears minimally retracted medially with the screw head approximately 3 mm beyond the tibial cortex. Comminuted mildly displaced fractures the proximal tibia as well as fibula are present. Overall, there appears to be increased appearance of fracture lucencies as well as diastasis compared to prior exam. Soft tissues: No joint effusion. No suspicious soft tissue calcifications. IMPRESSION: Comminuted tibial and fibular fractures appearing to demonstrate increased displacement/diastasis compared to prior exam. Retraction of surgical screws as above. Dictated by: Marcia Eastman M.D. on 10/13/2023 at 13:52 Approved by: Marcia Eastman M.D. on 10/13/2023 at 14:01 MDM Narrative Medical decision making narrative: 68-year-old male with surgical hardware retraction of left tib-fib fracture. X- ray results reveal increased displacement of tib-fib and retraction of hardware. Contacted Orthopedics, who stated that since the hardware had not protruded thr ough the skin, it was nonemergent and should be followed up with by the previous surgeon. Discussed plan of care with patient and family members, who verbalized understanding and were agreeable with course of action. Discharge Plan Departure Patient Disposition: Home Clinical Impression: Tibia/fibula fracture Qualifiers: Encounter type: subsequent encounter Fracture type: closed Laterality: left Fracture healing: with routine healing Qualified Code(s): S82.202D - Unspecified fracture of shaft of left tibia, subsequent encounter for closed fracture with routine healing Instructions: DI for Wound Infection Activity Restrictions/Additional Instructions: *You have been diagnosed with surgical hardware retraction of your left tib-fib fracture repair. We have discussed your case with the on-call orthopedic surgeon and it is recommended that you contact your surgeon immediately. The surgical screw will need to be removed and replaced. *What to do: *Please continue to take your regular medications as directed. [ ] New medication prescriptions sent to your pharmacy: [ ] [ ] New medication written as a paper prescription [x ] No new medications given *Please follow up with your primary care provider in 2-3 days, call for an appointment. Let them know you were seen in the Emergency Department and that we ask that you be seen in follow up. We will electronically transmit a record of today's note if your PCP is in our system *If you do not have a primary care provider please contact the [facility] Resource line at [phone]. They will ask some questions about your medical history and help get you set up with a doctor in the community. ? Return to ER if you should have any new, worsening or concerning symptoms, such as worsening pain, severe headache, confusion, chest pain, difficulty breathing, fever greater than 101 F, shaking chills, persistent vomiting to the point that you cannot drink fluids, or other new or worsening symptoms. Prescriptions: No Action docusate sodium 100 mg tablet 100 mg PO BID PRN (Reason: diarrhea) Qty: 60 3RF amlodipine 5 mg tablet 5 mg PO DAILY carvedilol 6.25 mg tablet 6.25 mg PO BID atorvastatin 40 mg tablet 40 mg PO DAILY aspirin [Adult Low Dose Aspirin] 81 mg tablet,delayed release (DR/EC) 81 mg PO DAILY gabapentin 100 mg capsule See Rx Instructions PO BID PRN Rx Instructions: 100 mg 1 cap twice weekly after dialysis orally twice a day PRN; (DME) Wheelchair See Rx Instructions .Route .MEDSUPPLY Qty: 1 0RF Rx Instructions: Use wheelchair to assist in transport metoprolol succinate 50 mg tablet extended release 24 hr 50 mg PO DAILY Qty: 90 3RF ferrous sulfate 325 mg (65 mg iron) tablet 325 mg PO Q OTHER DAY calcium citrate-vitamin D3 [Calcium Citrate + D] 315 mg-5 mcg (200 unit) Tablet 2 tab PO DAILY calcium acetate(phosphat bind) 667 mg capsule See Rx Instructions .ROUTE .COMPLEX Patient Comments: TAKE 2 CAPSULES BY MOUTH THREE TIMES DAILY WITH MEALS Rx Instructions: TAKE 2 CAPSULES BY MOUTH THREE TIMES DAILY WITH MEALS Referrals: López Perez DO [Primary Care Provider] - Stand Alone Forms: Patient Portal/API ED Sign-out <Wallace Garrison DO - Last Filed: 10/13/23 17:43> Cosign ED Attending Cosignature Attestation: Dr Garrison Co-Sign Statement: I was available for consultation during this patient's emergency department visit. This chart is signed by myself for administrative purposes only. I did not have direct contact with this patient during this visit. They were seen independently by the APC.
[2023-10-13 15:05] VITALS: BP 186/86; PULSE 85; RESP 19; TEMP 36.6; O2SAT 99
--- NOTE | 2023-10-13 15:07 | PC.NURSE ---
patient was told to follow up with his PCP about his blood pressure. he denied any chest pain, blurry vision, or head ache at time of discharge.
== END 2023-10-13 15:06 | disposition home or self-care (01) ==
PROVIDERS: Emergency Provider Registered Nurse; PCP Family Medicine
DX: S82.202D Unspecified fracture of shaft of left tibia, subsequent encounter for closed fracture with routine healing (principal); Z79.899 Other long term (current) drug therapy
CPT/HCPCS: 73562; 73590; 99281; 99283

== ENCOUNTER → 2024-11-02 11:27 | Outpatient (CLI) | payer MEDICARE, MEDICAID, SELFPAY ==
[2024-11-02 12:10] LABS: Add Manual Diff / Slide Review NO; Basophils Absolute Auto 100 /uL (0-100); Basophils Percent Auto 0.6 % (0-2); Eosinophils Absolute Auto 100 /uL (0-450); Eosinophils Percent Auto 1.1 % (2-4); Hematocrit 31.5 % (41-53); Hemoglobin 10.6 g/dL (13.5-17.5); Lymphocytes Absolute Auto 400 /uL (1100-4500); Lymphocytes Percent Auto 3.8 % (25-40); Mean Corpuscular HGB Conc 33.6 % (30-36); Mean Corpuscular Hemoglobin 33.1 PG (26-34); Mean Corpuscular Volume 98.4 fL (80-100); Monocytes Absolute Auto 900 /uL (0-900); Neutrophils Absolute Auto 9600 /uL (1500-7000); Neutrophils Percent Auto 86.5 % (50-75); Platelet Count 147 X10^3/uL (150-400); Red Cell Distribution Width 17.4 % (11.6-14.8); White Blood Cell Count 11.1 X10^3/uL (4.5-11.0)
[2024-11-02 12:21] LABS: Hemoglobin A1C% w Est Avg Glu 6.6 % (4.0-6.0)
[2024-11-02 12:39] LABS: Alanine Aminotransferase 27 IU/L (<50); Albumin 3.7 g/dL (3.5-5.0); Alkaline Phosphatase 105 U/L (38-126); Aspartate Aminotransferase 34 IU/L (17-59); BUN Creatinine Ratio 5.6 (6-22); Bilirubin Total 1.3 mg/dL (0.2-1.3); Blood Urea Nitrogen 44 mg/dL (9-20); Calcium 9.2 mg/dL (8.4-10.2); Carbon Dioxide 24 mmol/L (22-32); Chloride 93 mmol/L (98-107); Estimated Glomerular Filt Rate 7 mL/min (>60); Globulin 3.8 g/dL (1.7-4.1); Glucose 166 mg/dL (80-110); Magnesium 1.9 mg/dL (1.6-2.3); Potassium 4.6 mmol/L (3.4-5.1); Sodium 130 mmol/L (137-145); Total Protein 7.5 g/dL (6.3-8.2)
[2024-11-02 13:32] LABS: Vitamin B12 921 pg/mL (239-931)
[2024-11-02 13:41] LABS: HEMOLYSIS 34 (0-50); Iron 43 ug/dL (49-181)
[2024-11-02 13:51] LABS: Percent Iron Saturation 25 % (20-50); Total Iron Binding Capacity 171 ug/dL (261-462); Transferrin 132 mg/dL (206-381)
[2024-11-02 17:20] LABS: NT-proBNP (BNP-Adult 18+) 96300 pg/mL (<125)
[2024-11-02 18:13] LABS: HEMOLYSIS 20 (0-50)
[2024-11-02 18:16] LABS: Ferritin 1190 ng/mL (18-464)
== END ==
PROVIDERS: PCP Family Medicine; Referring Provider Family Medicine; Visit Provider Family Medicine
DX: I25.10 Atherosclerotic heart disease of native coronary artery without angina pectoris (principal); M10.9 Gout, unspecified; Z95.0 Presence of cardiac pacemaker; E11.9 Type 2 diabetes mellitus without complications; I73.9 Peripheral vascular disease, unspecified; N19 Unspecified kidney failure; I11.0 Hypertensive heart disease with heart failure; I50.9 Heart failure, unspecified
CPT/HCPCS: 36415; 80053; 82607; 82728; 83036; 83540; 83550; 83735; 83880; 84443; 84550; 85025